=== PATIENT | male | born 1995 | race Caucasian/White ===

== ENCOUNTER 2020-12-25 12:04 | Outpatient (REF) | payer MEDICAID, SELFPAY ==
[2020-12-25 18:30] LABS: Abs Immature Grans 0.02 10^3/uL (0.0-0.06); Absolute Basophil Count 0.02 10^3/uL (0.0-0.2); Absolute Eosinophil Count 0.04 10^3/uL (0.0-0.7); Absolute Lymphocyte Count 1.09 10^3/uL (1.2-3.4); Absolute Monocyte Count 0.52 10^3/uL (0.1-0.8); Basophils % 0.4; Eosinophils % 0.7; HCT 40.3 % (40.0-50.0); HGB 12.8 g/dL (13.5-17.5); Immature Grans % 0.4; Lymphocytes % 20.2; MCH 27.5 pg (27.0-33.0); MCHC 31.8 % (32.0-36.0); MCV 86.5 fL (80-95); Monocytes % 9.6; Neutrophils % 68.7; Nucleated RBC 0 %; RBC 4.66 10^6/uL (4.36-5.78); RDW 13.2 % (11.8-14.1); RDW-SD 41.3 fL; WBC 5.39 10^3/uL (4.4-10.8)
[2020-12-25 18:40] LABS: ALT 43 U/L (16-63); AST 20 U/L (15-37); Albumin 3.8 g/dL (3.4-5.0); Alkaline Phosphatase 76 U/L (46-116); Anion Gap 7.5 mmol/L (3-11); BUN 14 mg/dL (7-18); Bilirubin, Total 0.4 mg/dL (0.2-1.0); CO2 30.5 mmol/L (21.0-32.0); CREATININE 0.8 mg/dL (0.70-1.30); Calcium 8.9 mg/dL (8.5-10.1); Chloride 104 mmol/L (98-107); Glucose 88 mg/dL (74-106); Potassium 3.9 mmol/L (3.5-5.1); Sodium 142 mmol/L (136-145); Total Protein 6.9 g/dL (6.4-8.2)
[2020-12-25 18:50] LABS: D-Dimer 525 ng/mlFEU (<500)
[2020-12-25 19:01] LABS: Diff Comment PLT Morph Reviewed; RBC Morphology Normal
[2020-12-25 19:07] LABS: Platelet Count 8 10^3/uL (130-400)
== END 2020-12-25 12:05 | disposition home or self-care (01) ==
LOC: LBN 12:04
PROVIDERS: Visit Provider Nurse Practitioner Family
DX: M79.604 Pain in right leg (principal); R23.3 Spontaneous ecchymoses
CPT/HCPCS: 80053; 85025; 85379

== ENCOUNTER 2020-12-25 20:19 | Inpatient (IN) | payer MEDICAID, SELFPAY ==
[2020-12-25] VITALS (21 sets, daily range): BP systolic 98–107; BP diastolic 49–64; PULSE 52–74; RESP 11–24; TEMP 36.4–36.8; O2SAT 95–98
--- NOTE | 2020-12-25 20:25 | W.ED.GENAD ---
Discharge Plan Disposition Patient Disposition: [facility] INPATIENT Condition: Poor Discharge Details Chief Complaint: GenMedical Clinical Impression: Thrombocytopenia Admit Date/Time: 12/25/20 21:32 Admit Provider: Thomas Mccarthy Attending Provider: Thomas Mccarthy Primary Care Provider: Unknown,Unknown ED Provider: Roseline Samaniego Medical Decision Making Patient is a pleasant 25 year old male presenting today with c/c of thrombocytopenia and ecchymosis. PMH signifcant for ITP. States he has not had relapse in over a year. Has been followed by heme onc at [facility]. Was last seen by them in March 2019. Reports that he noted an abscess to his central chest one week ago. This spontaneous drained and has been improving. At the same time he noted enlarged lymphnode in the right axilla. Reports that since initially noting these things, he has been feeling well. Denies SOB, CP, rash. No BRBPR, melana, hematuria, hematemesis, bleeding from his gums. States he had a HERNANDEZ over a week ago but none since then, no HERNANDEZ currently. States that yesterday evening he noted unexplained ecchymosis and discomfort to RLE. Feels like when he has had ITP relapse in the past. Patient seen at urgent care this morning. Labs ordered, platelet count 8. Patient advised to come here for evaluation and treatment. He reports he has been in [facility] single digits historically. On exam, patient appears nontoxic. No petechial rashes noted. Lungs are clear. Abdomen benign. He does have a focal area of ecchymosis to the anterior aspect of the right lower extremity. Calf is soft nontoxic. 2+. Plan to repeat CBC, obtain coag. Consult requested at [facility] heme/onc. Consulted with Dr. Sandra. She recommended 40mg Dexamethasone. REcommended against platelet transfusion. Dexamethasone for 4 days. If not reponding in 1-2 days recommended IVIG 1g/kg/QD x 2 days. During that still continue the Dexamethasone. DIC panel and coags. Peripheral smear for schitozyctes Tic and Lyme panel, hepatitis, HIV. If vaccine related it would happen within 28 days COVID vaccine was several months ago. Discussed recommendations with the patient. He has had to be admitted for this historically. Is in agreement with this plan. Consulted with Dr. Mccarthy who agrees to admission for thrombocytopenia and likely ITP recurrence.. HPI General Mode of arrival: ambulatory. Date/Time Provider Initiated Documentation: 12/25/20 20:19. Limitations to Documentation: no limitations. Information obtained by: patient and RN notes reviewed. History of Present Illness 25 year old M presents to the emergency department with the chief complaint of low platelets, unusual bruising, described as moderate and similar to prior episodes, with intensity rated at 5. Quality is described as aching, and is localized to the right and lower extremity. Patient reports no radiation. Patient started experiencing this day(s) (noted discomfort and bruising to RLE yesterday) and it has been constant. No relieving factors improve symptom(s), No exacerbating factors reported . Patient notes no other symptoms.; denies chest pain, cough, fever/chills, headaches, loss of appetite, nausea/vomiting, shortness of breath and weakness. Patient did receive the following treatments prior to arrival, none Related Data Home Medications Medication Instructions Recorded Confirmed Unknown [No Known Home Meds] 12/25/20 12/25/20 Allergies Allergy/AdvReac Type Severity Reaction Status Date / Time Sulfa (Sulfonamide Allergy Mild Rash Verified 12/25/20 20:29 Antibiotics) Review of Systems Constitutional Constitutional: Reports as per HPI, Denies chills, Denies fever(s) and Denies headache(s) ENT Ears, Nose, Mouth, and Throat: Denies dizziness and Denies headache(s) Cardiovascular Cardiovascular: Reports as per HPI, Denies chest pain, Denies dyspnea and Denies dyspnea on exertion Respiratory Respiratory: Reports as per HPI, Denies chest congestion, Denies cough, Denies pain on inspiration, Denies pain with cough, Denies dyspnea and Denies dyspnea on exertion Gastrointestinal Gastrointestinal: Reports as per HPI, Denies abdominal pain, Denies diarrhea, Denies nausea and Denies vomiting Genitourinary Genitourinary: Denies system reviewed and no additional complaints, except as documented (denies change in urinary habits) and Denies hematuria Musculoskeletal Musculoskeletal: Reports as per HPI and Denies back pain Integumentary/Breasts Skin/Breast: Reports as per HPI and Denies rash Neurologic Neurologic: Reports as per HPI, Denies dizziness and Denies headache(s) [facility] Social History Smoking/Tobacco Use Status: Never Smoking risk assessment performed?: Yes Alcohol Intake: never Drug use: Daily Substance use type: marijuana Do you feel safe at home: Yes Do you feel safe in your relationship?: Yes Exam Const General: cooperative, comfortable, no acute distress, well developed and ill appearing chronically Nutritional Appearance: average body habitus and well nourished Orientation: alert, awake and oriented x3 [facility] Head: normal to inspection Ears: hearing grossly normal bilaterally Mouth: moist mucous membranes Throat: posterior oropharynx normal (no rash ) Chest Chest: no crepitus Chest/axillae images: 1. Area of healing abscess. No surrounding erythema, no continued swelling. Central area appears to have opened. Appears to be healing well. 2. 2cm lymphnode, no pain with palpation. Soft, mobile Resp Effort & Inspection: normal respiratory effort, able to speak in complete sentences and no respiratory distress Auscultation: clear to auscultation bilaterally, no rales, no rhonchi and no wheezes Cardio Rate: regular rate Rhythm: regular rhythm Heart Sounds: S1 normal and S2 normal GI Inspection: normal to inspection, no edema and non-distended Palpation: soft, no hepatosplenomegaly, not firm, no guarding, not rigid and nontender Auscultation: normal bowel sounds Back/Spine/Pelvis Thoracic/Lumbar Spine: thoracic and lumbar spine normal to inspection (no bruising) Skin Full body images: 1. Area of ecchymosis. No signficant swelling. 2+ distal pulses. Calf is soft and nontender. Neuro General: patient alert, patient awake and patient oriented x3 Cognition: normal cognition Speech: speech normal Gait: normal gait Extrem General: normal to inspection, capillary refill normal, no pedal edema, no calf tenderness and normal gait Psych Appearance: grossly normal and well kempt Mental Status: mental status grossly normal Speech and Movement: speech and movement normal
[2020-12-25 21:02] LABS: INR 1.2 (0.9-1.1); PTT Activated 28.3 sec (21.0-27.5); Prothrombin Time 11.6 sec (9.3-11.0)
[2020-12-25 21:07] LABS: Abs Immature Grans 0.01 10^3/uL (0.0-0.06); Absolute Basophil Count 0.01 10^3/uL (0.0-0.2); Absolute Eosinophil Count 0.07 10^3/uL (0.0-0.7); Absolute Lymphocyte Count 1.65 10^3/uL (1.2-3.4); Absolute Monocyte Count 0.68 10^3/uL (0.1-0.8); Absolute Neutrophil Count 3.28 10^3/uL (1.2-6.7); Basophils % 0.2; Eosinophils % 1.2; HCT 38.6 % (40.0-50.0); HGB 12.6 g/dL (13.5-17.5); Immature Grans % 0.2; Lymphocytes % 28.9; MCH 27.9 pg (27.0-33.0); MCHC 32.6 % (32.0-36.0); MCV 85.4 fL (80-95); Monocytes % 11.9; Neutrophils % 57.6; Nucleated RBC 0 %; RBC 4.52 10^6/uL (4.36-5.78); RDW 13.2 % (11.8-14.1); RDW-SD 41.6 fL
--- NOTE | 2020-12-25 21:12 | NUR.NOTE ---
Lab calls with critical platelet level; 11. Provider notified. Nursing Note:
[2020-12-25 21:13] LABS: Platelet Count 11 10^3/uL (130-400)
[2020-12-25] MEDS: Dexamethasone 10 MG/ML VIAL 40 MG IVP (21:29)
[2020-12-25 21:43] LABS: Source Nasal/Nares
[2020-12-26 00:23] LABS: COVID-19 PCR Negative (Negative)
--- NOTE | 2020-12-26 05:36 | HPE_ITS ---
Date of service: 12/25/20 Time of Service: 21:04 Assessment and Plan Assessment and plan (1) Thrombocytopenia: Status: Chronic Assessment and plan: Recurrence. Etiology may have been a skin infection (folliculitis). COVID negative in an immunized person. Heme/Onc recommendations being followed as per HPI. Tick-born pathogens, Hepatitis panel and HIV pending. Monitor platelets. Acetaminophen or hydrocodone prn for pain. History of Present Illness History of Present Illness Chief Complaint: Bruising and low platelet count Narrative: This is a 25 yo male with a PMH of ITP; last episode was over 1 year ago. He presented to the ED with a platelet count of 8 obtained at Urgent Care. He has noted bruising and discomfort of an area of the right lower extremity noted the day prior to admission. He has experienced joint pain and petechiae with past episodes. He does not recall any trauma to that area. He has been [place] [facility] visit in March of [place]. Of note, he had a chest wall lesion, described by him as an abscess, one week ago that has since resolved. He has also noted an enlarged right axillary lymph node. He has not felt unwell; no fever/chills, cough, runny nose, SOA. No bleeding gums, melena, hematochezia, epistaxis, hematuria. He did report a headache over one week prior to presentation that resolved. He did note that his platelet count has been as low as 1 in the past. ED provider contacted [facility] [place]e/Onc electronic industrial controls mechanic provider Dr Sandra. She recommended 40mg IV Dexamethasone for 4 days. If no response in 1-2 days proceed with IVIG 1g/kg QD x 2 days. Cont the dexamethasone along with the IVIG. DIC panel and coags were recommended and ordered. A peripheral smear for schitozyctes, tick- borne pathogen panel, hepatitis panel and HIV were ordered. Dr Sandra mentioned that typically if this were vaccine related it would occur within 28 days of the vaccine. He had a COVID vaccine several months ago. [facility] Social History Smoking/Tobacco Use Status: Never Smoking risk assessment performed?: Yes Alcohol Intake: never Drug use: Daily Substance use type: marijuana Do you feel safe at home: Yes Do you feel safe in your relationship?: Yes Meds Allergies and Home Medications Allergies Allergy/AdvReac Type Severity Reaction Status Date / Time Sulfa (Sulfonamide Allergy Mild Rash Verified 12/25/20 20:29 Antibiotics) Home Medications Medication Instructions Recorded Confirmed Type Unknown [No Known Home Meds] 12/25/20 12/25/20 History Exam Const General: cooperative and no acute distress Nutritional Appearance: overweight Orientation: alert and oriented x3 [facility] Head: normocephalic and atraumatic Ears: hearing grossly normal bilaterally Mouth: moist mucous membranes abnormal Eyes General: appearance normal, both eyes and all related structures Sclera: sclerae normal Chest Chest/axillae images: 1. lesion with punctate central opening. No tenderness or drainage. 2. appx 2 cm lymphnode Resp Effort & Inspection: normal respiratory effort Auscultation: clear to auscultation bilaterally Cardio Rate: regular rate Rhythm: regular rhythm Heart Sounds: S1 normal and S2 normal GI Palpation: soft, no splenomegaly and nontender Skin General skin exam: ecchymosis (RLE at lateral calf. Tender.) Neuro General: no focal motor deficits Cognition: normal cognition Speech: speech normal Extrem General: no pedal edema and calf tenderness (RLE at area of ecchymoses but not posterior calf.) Psych Appearance: grossly normal Mental Status: mental status grossly normal Affect: blunted Results Labs Result diagrams: 12/25/20 20:37 Labs: Laboratory Results - last 24 hr 12/25/20 12/25/20 12/25/20 20:37 20:37 21:37 WBC 5.70 RBC 4.52 Hgb 12.6 L Hct 38.6 L MCV 85.4 MCH 27.9 MCHC 32.6 RDW 13.2 Plt Count 11 L* MPV Immature Gran % 0.2 Neutrophils % 57.6 Lymphocytes % 28.9 Monocytes % 11.9 Eosinophils % 1.2 Basophils % 0.2 Nucleated RBC % 0 Absolute Neutrophils 3.28 Absolute Lymphocytes 1.65 Absolute Monocytes 0.68 Absolute Eosinophils 0.07 Absolute Basophils 0.01 PT 11.6 H INR 1.2 H APTT 28.3 H COVID-19 Source Nasal/Nares SARS-CoV-2 (PCR) Negative Last Vital Signs Temp 36.4 C L 12/25/20 22:42 Pulse 68 12/25/20 22:42 Resp 16 12/25/20 22:42 BP 101/64 12/25/20 22:42 Pulse Ox 97 12/25/20 22:42
[2020-12-26 07:09] LABS: Abs Immature Grans 0.02 10^3/uL (0.0-0.06); Absolute Basophil Count 0.01 10^3/uL (0.0-0.2); Absolute Monocyte Count 0.06 10^3/uL (0.1-0.8); Absolute Neutrophil Count 3.62 10^3/uL (1.2-6.7); Basophils % 0.2; HCT 42.8 % (40.0-50.0); HGB 13.5 g/dL (13.5-17.5); Immature Grans % 0.5; Lymphocytes % 11.9; MCH 27.2 pg (27.0-33.0); MCHC 31.5 % (32.0-36.0); MCV 86.1 fL (80-95); Monocytes % 1.4; Nucleated RBC 0 %; RBC 4.97 10^6/uL (4.36-5.78); RDW 13.2 % (11.8-14.1); RDW-SD 41.1 fL; WBC 4.21 10^3/uL (4.4-10.8)
[2020-12-26 07:15] LABS: Magnesium 2.3 mg/dL (1.8-2.4)
[2020-12-26 07:16] LABS: INR 1.1 (0.9-1.1); Prothrombin Time 11.2 sec (9.3-11.0)
[2020-12-26 07:29] LABS: Platelet Count 13 10^3/uL (130-400)
[2020-12-26 07:53] VITALS: BP 121/74; PULSE 63; RESP 17; TEMP 36.1; O2SAT 96
--- NOTE | 2020-12-26 11:59 | INITIAL_ITS ---
- If Service Date Differs Date of service: 12/26/20 Time of Service: 11:59 Care Management Initial Assess REASON FOR HOSPITALIZATION:: Immune Thrombocytopenia Purpura. PAST MEDICAL HISTORY/PAST SURGICAL HISTORY:: No past medical/surgical history of record. PREVIOUS FUNCTIONAL STATUS/SOCIAL/FAMILY SUPPORTS:: Myles lives in [place] with his brother and three roommates. He works at [email or web address] and spends his free time watching television, playing video games, and hanging out with friends. He names his mom and step-dad as his main support. CURRENT FUNCTIONAL STATUS:: Myles is lying in bed watching television when CM comes to meet with him. He is pleasant and easily engages in conversation. He shows me the bruise on his right leg and says he can tell his platelet count is improving by the color of the bruise. ADVANCE DIRECTIVES:: None on file; patient declines form and says his mom and step-dad know what his wishes are. Has patient been provided with info about the portal/API?: Yes Did the patient sign up for the portal?: Yes (Yes through PCP) CODE STATUS:: Full Code INSURANCE COVERAGE / FINANCIAL ISSUES:: Medicaid. CURRENT HOME/COMMUNITY SERVICES/EQUIPMENT:: None. PRIMARY CARE PHYSICIAN:: Patient states he turned in new patient paperwork at [facility] and is waiting for a provider to be assigned to him. POTENTIAL DISCHARGE NEEDS:: Follow up appointments with PCP and [facility] retail presentation specialist. PATIENT/FAMILY EDUCATION NEEDS:: Review discharge instructions including medications, limitations, and follow up plan of care, and discuss Ask Me Three and self management. ANTICIPATED BARRIERS TO DISCHARGE:: No anticipated barriers at this time. TRANSPORTATION:: Via private vehicle with family. PLAN:: Anticipate Myles will be discharged home with no new services when medically cleared by provider. He will follow up with his PCP, [facility] hematology and discharge plan of care as directed. He will be driven home by his brother via private vehicle when ready. CM will continue to follow.
[2020-12-26] MEDS: Dexamethasone 10 MG/ML VIAL 40 MG IVP (17:15)
--- NOTE | 2020-12-26 19:59 | W.PM.PROGNOT ---
Date of Service Date of service: 12/26/20 Time of Service: 20:00 Assessment and Plan Assessment and plan (1) Acute ITP: Status: Acute Assessment and plan: Continue dexamethasone. Monitor plts. May require IVIG - the patient states that he has had it in the past. (2) Folliculitis: Status: Acute Assessment and plan: Start doxycycline PO (3) DVT prophylaxis: Status: Acute Assessment and plan: Contraindicated in setting of acute severe thrombocytopenia (4) Discharge planning issues: Status: Acute Assessment and plan: Full code Continues to require hospitalization Subjective Subjective Interval history since last seen: Feels well. States that there are no new ecchymoses and no bleeding. Denies dizziness, chest pain, shortness of breath, nausea. Recalls that just a week ago he had a large lymph node in his right axilla, but he can't feel it now. Exam Narrative Exam Narrative: General: Pleasant male who is watching TV in bed, A&Ox3, no distress HEENT: EOMI, MMM Heart: RRR, no m/r/g Lungs: CTAB Abdomen: soft, nontender, nondistended Extremities: no lymphadenopathy in R axilla that I can palpate, RLE ecchymosis pale green, no other obvious ecchymoese, no edema Objective Last Vital Signs Temp 36.1 C L 12/26/20 07:53 Pulse 63 12/26/20 07:53 Resp 17 12/26/20 07:53 BP 121/74 12/26/20 07:53 Pulse Ox 96 12/26/20 07:53 Laboratory Results - last 24 hr 12/25/20 12/25/20 12/25/20 20:37 20:37 21:37 WBC 5.70 RBC 4.52 Hgb 12.6 L Hct 38.6 L MCV 85.4 MCH 27.9 MCHC 32.6 RDW 13.2 Plt Count 11 L* MPV Immature Gran % 0.2 Neutrophils % 57.6 Lymphocytes % 28.9 Monocytes % 11.9 Eosinophils % 1.2 Basophils % 0.2 Nucleated RBC % 0 Absolute Neutrophils 3.28 Absolute Lymphocytes 1.65 Absolute Monocytes 0.68 Absolute Eosinophils 0.07 Absolute Basophils 0.01 PT 11.6 H INR 1.2 H APTT 28.3 H Magnesium COVID-19 Source Nasal/Nares SARS-CoV-2 (PCR) Negative 12/26/20 12/26/20 12/26/20 06:44 06:44 06:44 WBC 4.21 L RBC 4.97 Hgb 13.5 Hct 42.8 MCV 86.1 MCH 27.2 MCHC 31.5 L RDW 13.2 Plt Count 13 L* MPV Immature Gran % 0.5 Neutrophils % 86.0 Lymphocytes % 11.9 Monocytes % 1.4 Eosinophils % 0.0 Basophils % 0.2 Nucleated RBC % 0 Absolute Neutrophils 3.62 Absolute Lymphocytes 0.50 L Absolute Monocytes 0.06 L Absolute Eosinophils 0.00 Absolute Basophils 0.01 PT 11.2 H INR 1.1 APTT Magnesium 2.3 COVID-19 Source SARS-CoV-2 (PCR)
[2020-12-26 20:26] VITALS: BP 100/55; PULSE 55; RESP 16; TEMP 36.6; O2SAT 96
[2020-12-26] MEDS: Doxycycline Hyclate 100 MG CAP PO (21:15)
[2020-12-26 23:20] VITALS: BP 102/63; PULSE 66; RESP 17; TEMP 35.3; O2SAT 98
[2020-12-27 07:30] VITALS: BP 100/54; PULSE 66; RESP 16; TEMP 36.7; O2SAT 98
[2020-12-27 07:36] LABS: Abs Immature Grans 0.11 10^3/uL (0.0-0.06); Absolute Basophil Count 0.02 10^3/uL (0.0-0.2); Absolute Lymphocyte Count 1.03 10^3/uL (1.2-3.4); Absolute Monocyte Count 0.34 10^3/uL (0.1-0.8); Absolute Neutrophil Count 15.71 10^3/uL (1.2-6.7); Basophils % 0.1; HCT 42.1 % (40.0-50.0); HGB 13.6 g/dL (13.5-17.5); Immature Grans % 0.6; MCH 27.6 pg (27.0-33.0); MCHC 32.3 % (32.0-36.0); MCV 85.4 fL (80-95); MPV 15.5 fL (8.0-11.0); Neutrophils % 91.3; Nucleated RBC 0 %; RBC 4.93 10^6/uL (4.36-5.78); RDW 13.4 % (11.8-14.1); RDW-SD 41.6 fL; WBC 17.21 10^3/uL (4.4-10.8)
[2020-12-27] MEDS: Doxycycline Hyclate 100 MG CAP PO ×2 (07:54→20:21)
[2020-12-27] MEDS: Pantoprazole 40 MG TABCR PO (07:54)
[2020-12-27 07:56] LABS: Anion Gap 8.6 mmol/L (3-11); BUN 17 mg/dL (7-18); CO2 26.4 mmol/L (21.0-32.0); CREATININE 0.7 mg/dL (0.70-1.30); Calcium 9.5 mg/dL (8.5-10.1); Chloride 108 mmol/L (98-107); Glucose 138 mg/dL (74-106); Magnesium 2.4 mg/dL (1.8-2.4); Potassium 4.2 mmol/L (3.5-5.1); Sodium 143 mmol/L (136-145)
[2020-12-27 08:37] LABS: Vitamin B12 834 pg/mL (193-986)
[2020-12-27 08:42] LABS: Platelet Count 56 10^3/uL (130-400)
[2020-12-27 10:42] LABS: Lyme Ab w Rflx to Lyme Confirm Negative (Negative)
[2020-12-27 11:19] LABS: HIV-1/2 Ag & Ab Screen Negative (Negative)
[2020-12-27 11:32] LABS: Hepatitis A Antibody IgM Negative (Negative); Hepatitis B Core Antibody Negative (Negative); Hepatitis B surface Ag Negative (Negative); Hepatitis C Ab w Rflx HCV PCR Negative (Negative)
[2020-12-27 15:15] VITALS: BP 104/61; PULSE 63; RESP 16; TEMP 36.5; O2SAT 97
--- NOTE | 2020-12-27 16:30 | PDOC.CMPRO ---
- If Service Date Differs Date of service: 12/27/20 Time of Service: 16:30 Care Management Progress Note S/O: Myles is lying in bed watching television when CM comes to meet with him. He states he is doing well and is looking forward to returning home. He shares his platelet count today was 56 and continues to trend upward. Per a conversation with Dr. Johnson, Myles requires three doses of dexamethasone, so he will remain inpatient at [facility] through Wednesday. A: Myles is a 25 year old male admitted to [facility] on 12/25/2020 for immune thrombocytopenia purpura. P: Myles will be discharged home with no new services when medically cleared by provider. He will follow up with his PCP, [facility] hematology/oncology provider, and discharge plan of care as directed. His brother will drive him home via private vehicle when ready. CM will continue to follow.
[2020-12-27] MEDS: Dexamethasone 10 MG/ML VIAL 40 MG IVP (17:58)
--- NOTE | 2020-12-27 18:23 | W.PM.PROGNOT ---
Date of Service Date of service: 12/27/20 Time of Service: 16:30 Assessment and Plan Assessment and plan (1) Acute ITP: Status: Acute Assessment and plan: Continue dexamethasone - 4th dose will be tomorrow evening, after which he can hopefully be d/c'ed. Monitor plts. May require IVIG - the patient states that he has had it in the past. (2) Folliculitis: Status: Acute Assessment and plan: Continue PO doxycycline (3) DVT prophylaxis: Status: Acute Assessment and plan: Contraindicated in setting of acute severe thrombocytopenia (4) Discharge planning issues: Status: Acute Assessment and plan: Full code Continues to require hospitalization Subjective Subjective Interval history since last seen: Mr Lee states he feels well. No new bleeding or ecchymoses. Denies dizziness, chest pain, shortness of breath, nausea. Case was discussed with [facility] hematology - recommended a total of 4 doses of high dose dexamethasone. If platelets drop tomorrow, recommended IVIG 1 mg/kg. He will need bloodwork in 1 week. Exam Narrative Exam Narrative: General: Pleasant male who is watching The office on TV in bed, A&Ox3, no distress HEENT: EOMI, MMM Heart: RRR, no m/r/g Lungs: CTAB Abdomen: soft, nontender, nondistended Extremities: no lymphadenopathy in R axilla that I can palpate, RLE ecchymosis pale green, unchanged, no other obvious ecchymoses, no edema Objective Last Vital Signs Temp 36.5 C 12/27/20 15:15 Pulse 63 12/27/20 15:15 Resp 16 12/27/20 15:15 BP 104/61 12/27/20 15:15 Pulse Ox 97 12/27/20 15:15 Laboratory Results - last 24 hr 12/25/20 12/25/20 12/25/20 21:34 21:34 21:34 WBC RBC Hgb Hct MCV MCH MCHC RDW Plt Count MPV Immature Gran % Neutrophils % Lymphocytes % Monocytes % Eosinophils % Basophils % Nucleated RBC % Absolute Neutrophils Absolute Lymphocytes Absolute Monocytes Absolute Eosinophils Absolute Basophils Sodium Potassium Chloride Carbon Dioxide Anion Gap BUN Creatinine Estimated GFR/1.73 m2 Glucose Calcium Magnesium Vitamin B12 Lyme Disease Antibody Negative Hepatitis A IgM Ab Negative Hep Bs Antigen Negative Hep B Core Total Ab Negative Hepatitis C Antibody Negative HIV 1&2 Ag/Ab, 4th Gen Negative 12/27/20 12/27/20 12/27/20 07:00 07:00 07:00 WBC 17.21 H D RBC 4.93 Hgb 13.6 Hct 42.1 MCV 85.4 MCH 27.6 MCHC 32.3 RDW 13.4 Plt Count 56 L D MPV 15.5 H Immature Gran % 0.6 Neutrophils % 91.3 Lymphocytes % 6.0 Monocytes % 2.0 Eosinophils % 0.0 Basophils % 0.1 Nucleated RBC % 0 Absolute Neutrophils 15.71 H Absolute Lymphocytes 1.03 L Absolute Monocytes 0.34 Absolute Eosinophils 0.00 Absolute Basophils 0.02 Sodium 143 Potassium 4.2 Chloride 108 H Carbon Dioxide 26.4 Anion Gap 8.6 BUN 17 Creatinine 0.7 Estimated GFR/1.73 m2 >= 60.00 Glucose 138 H Calcium 9.5 Magnesium 2.4 Vitamin B12 834 Lyme Disease Antibody Hepatitis A IgM Ab Hep Bs Antigen Hep B Core Total Ab Hepatitis C Antibody HIV 1&2 Ag/Ab, 4th Gen
[2020-12-27 23:49] VITALS: BP 105/65; PULSE 65; RESP 18; TEMP 36.5; O2SAT 99
[2020-12-28] MEDS: Pantoprazole 40 MG TABCR PO (06:36)
[2020-12-28 07:15] VITALS: BP 119/65; PULSE 55; RESP 16; TEMP 36.1; O2SAT 96
[2020-12-28] MEDS: Doxycycline Hyclate 100 MG CAP PO (09:07)
[2020-12-28 10:03] LABS: Abs Immature Grans 0.26 10^3/uL (0.0-0.06); Absolute Basophil Count 0.03 10^3/uL (0.0-0.2); Absolute Lymphocyte Count 1.02 10^3/uL (1.2-3.4); Absolute Monocyte Count 0.31 10^3/uL (0.1-0.8); Basophils % 0.2; HCT 42.9 % (40.0-50.0); HGB 13.7 g/dL (13.5-17.5); Immature Grans % 1.6; Lymphocytes % 6.3; MCH 27.6 pg (27.0-33.0); MCHC 31.9 % (32.0-36.0); MCV 86.3 fL (80-95); Monocytes % 1.9; Nucleated RBC 0 %; Platelet Count 115 10^3/uL (130-400); RBC 4.97 10^6/uL (4.36-5.78); RDW 13.8 % (11.8-14.1); RDW-SD 43.6 fL; WBC 16.22 10^3/uL (4.4-10.8)
--- NOTE | 2020-12-28 16:14 | PGE_ITS ---
Date of Service Date of service: 12/28/20 Time of Service: 16:14 Assessment and Plan Assessment and plan (1) Acute ITP: Status: Acute Assessment and plan: Complete his fourth dose of dexamethasone 40 mg IV push now and then discharge him this evening with follow-up CBC next week. Patient should call Dr. Ricky Francis's office at [facility] for follow-up in the next couple weeks. I told the patient could return to work at [employer] next week as long as his CBC remains normal he should just take appropriate precautions prevent any injury such as wearing eye protection and gloves but he should not do any work where he could have a head injury or fall. (2) Folliculitis: Status: Acute Assessment and plan: Continue PO doxycycline patient's had 3 days of doxycycline I will give him 3 more days and that should be sufficient. An Rx was sent to [facility] in [place] (3) DVT prophylaxis: Status: Acute Assessment and plan: Contraindicated in setting of acute severe thrombocytopenia (4) Discharge planning issues: Status: Acute Assessment and plan: Full code Discharge home today Subjective Subjective Interval history since last seen: Patient feels fine he wants to leave the hospital. He is scheduled to get his last dose of Decadron 40 mg this evening at 6 PM I told him we can give this to him early and he could be discharged home. Since his platelet counts are now up to 115,000 I see no need to keep him here another day just to repeat his platelet count tomorrow. I did recommend he follow-up with his hotel director at [facility] which is Dr. Ricky Francis. I told the patient that he should get a repeat CBC next week and call Dr. Francis's office on Wednesday for follow-up. Patient has no fever no chills no nausea or vomiting. His axillary adenopathy is resolved and the small folliculitis on his chest also has resolved. Exam Narrative Exam Narrative: Redheaded male alert and oriented person place time circumstance Chest wall has a small area of folliculitis that appears to be healed over the sternum. No palpable axillary adenopathy Lungs are clear to auscultation Heart regular rate and rhythm Abdomen soft nontender nondistended normal bowel sounds with no palpable organomegaly Objective Last Vital Signs Temp 36.1 C L 12/28/20 07:15 Pulse 55 L 12/28/20 07:15 Resp 16 12/28/20 07:15 BP 119/65 12/28/20 07:15 Pulse Ox 96 12/28/20 07:15 Laboratory Results - last 24 hr 12/25/20 12/25/20 12/25/20 21:34 21:34 21:34 WBC RBC Hgb Hct MCV MCH MCHC RDW Plt Count MPV Immature Gran % Neutrophils % Lymphocytes % Monocytes % Eosinophils % Basophils % Nucleated RBC % Absolute Neutrophils Absolute Lymphocytes Absolute Monocytes Absolute Eosinophils Absolute Basophils Lyme Disease Antibody Negative Hepatitis A IgM Ab Negative Hep Bs Antigen Negative Hep B Core Total Ab Negative Hepatitis C Antibody Negative HIV 1&2 Ag/Ab, 4th Gen Negative 12/28/20 09:29 WBC 16.22 H RBC 4.97 Hgb 13.7 Hct 42.9 MCV 86.3 MCH 27.6 MCHC 31.9 L RDW 13.8 Plt Count 115 L MPV Immature Gran % 1.6 Neutrophils % 90.0 Lymphocytes % 6.3 Monocytes % 1.9 Eosinophils % 0.0 Basophils % 0.2 Nucleated RBC % 0 Absolute Neutrophils 14.60 H Absolute Lymphocytes 1.02 L Absolute Monocytes 0.31 Absolute Eosinophils 0.00 Absolute Basophils 0.03 Lyme Disease Antibody Hepatitis A IgM Ab Hep Bs Antigen Hep B Core Total Ab Hepatitis C Antibody HIV 1&2 Ag/Ab, 4th Gen
[2020-12-28 16:16] VITALS: BP 108/65; PULSE 52; RESP 16; TEMP 37.2; O2SAT 98
--- NOTE | 2020-12-28 16:32 | W.PM.DS.N ---
Date of service: 12/28/20 Time of Service: 16:32 DS: Diagnosis Discharge Diagnosis (1) Acute ITP: Status: Resolved Asessment and Plan: Patient presented to the ER 12/25 w/ c/o of new ecchymosis in RLE and recent folliculitis over his anterior chest along w/ right axillary adenopathy. No associated melena or hematochezia or bleeding gums nor hematuria. 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 He reportedly has not had a relapse in over one year. The ER discussed his case w/ heme/onc at [facility] [place] (Dr. Sandra) who recommended admission for daily dexamethasone 40 mg IVP x 4 days and if not responding then give IVIG 1 gm/kg/daily x 2 days and to obtain peripheral smear for schistocytes, Tick and Lyme panel, hepatitis screen and HIV. Of note patient has been fully vaccinated for COVID but this was done several months ago and his ITP was not felt to be related to his vaccine. Patient was treated w/ decadron 40 mg iv daily x 4 days. after the first dose his platelet count ajit from 8000 to 13,000 and after the second dose it ajit to 56,,000 and at the time of discharge (after 3 doses and prior to the 4th dose) it was 115,000. He did receive his 4th dose of decadron 40 mg prior to discharge. he will get repeat CBC next week w/ follow up w/ his claim clinician in the next 1 to 2 weeks. (2) Folliculitis: Status: Resolved Asessment and Plan: patient had a mild folliculitis involving his anterior chest wall over the sternum which was already improving at the time of admission. he was treated w/ doxycycline 100 mg po bid and will receive 3 more days of the doxycycline for total of 6 days. (3) DVT prophylaxis: Status: Resolved Asessment and Plan: patient was placed on SCD as he was not a candidate for enoxaparin or heparin in light of his ITP (4) Discharge planning issues: Status: Resolved Asessment and Plan: patient was discharged home w/ scheduled follow up visit w/ Dr. Herrera Castillo next week and patient to call his claim clinician's office (Dr. Ricky Francis at [facility] [place]) tomorrow for follow up in 2 weeks Discharge Plan Disposition Patient Disposition: HOME Condition: Improving Discharge Details Reason For Visit: Immune Thrombocytopenia Purpura Admit Date/Time: 12/25/20 21:32 Admit Provider: Thomas Mccarthy Attending Provider: Thomas Mccarthy Primary Care Provider: Unknown,Unknown Home Meds and New Rx's Prescriptions: New doxycycline hyclate 150 mg tablet 150 mg PO BID Qty: 6 RF: 0 Discharge Instructions Instructions: Immune Thrombocytopenia (DC), Folliculitis (DC) Stand Alone Forms: Nursing Discharge Form Referrals: Herrera Castillo MD [ [facility] STAFF PHYSICIAN] - 12/31/20 11:20 am () Ricky Francis [ [facility] STAFF PHYSICIAN] - (Call office Wednesday to make follow up appointment for 2 weeks.) Activity:: Activity as Tolerated Equipment/Supplies:: No Equipment Needed Diet:: Normal Diet Discharge Orders Discharge Orders: Discharge Order (Routine); Ordered 12/28/20 Ordered By: Alexandro Goncalves Other Ambulatory Orders: Complete Blood Count w/Diff (Routine) Timeframe: 1 Week Facility: [facility] - Location: Laboratory Outpatient Ordered By: Alexandro Goncalves Discharge Data Discharge Date/Time-TO BE ENTERED AT DEPARTURE: 12/28/20 17:40 DS: Summary Time Spent with Patient providing and/or coordinating discharge services: Less than 30 minutes Specific discharge activities: Rx, follow up labs; explaination of findings Status at Discharge Functional status at discharge: independent ambulation Overall status at discharge: patient is back to baseline Mental Status: mental status grossly normal Speech and Movement: speech and movement normal Mood: congruent mood Affect: normal affect Exam Narrative Exam Narrative: Redheaded male alert and oriented person place time circumstance Chest wall has a small area of folliculitis that appears to be healed over the sternum. No palpable axillary adenopathy Lungs are clear to auscultation Heart regular rate and rhythm Abdomen soft nontender nondistended normal bowel sounds with no palpable organomegaly Psych Mental Status: mental status grossly normal Speech and Movement: speech and movement normal Mood: congruent mood Affect: normal affect DS: Data Vitals/I&O Vitals and I&O: Vital Signs Temperature 37.2 C 12/28/20 16:16 Temperature Source Tympanic 12/28/20 16:16 Pulse 52 L 12/28/20 16:16 Pulse Rhythm Regular 12/28/20 07:15 Pulse 58 L 12/25/20 22:10 Respiratory Rate 16 12/28/20 16:16 Respiratory Effort Non-Labored 12/28/20 07:15 Respiratory Depth Normal 12/28/20 07:15 Respiratory Pattern Normal 12/28/20 07:15 Blood Pressure 108/65 12/28/20 16:16 Blood Pressure Mean 65 12/25/20 22:01 Blood Pressure Position Sitting 12/25/20 20:22 Pulse Oximetry 98 12/28/20 16:16 Oxygen Delivery Method Room Air 12/28/20 16:16 Oxygen Flow Rate 0 12/28/20 16:16 Pain Level 0 12/28/20 07:15 Intake & Output 12/27/20 12/28/20 12/28/20 23:59 11:59 23:59 Intake Total 420 / 420 250 / 250 Balance 420 / 420 250 / 250 Intake: Oral 420 / 420 250 / 250 Other: Urine Appearance Clear Clear Comment pT voiding independent in toilet Voiding Methods Toilet Data Completed and Pending Labs on day of discharge: Labs from last 24 hours 12/28/20 12/25/20 12/25/20 09:29 21:34 21:34 WBC 16.22 H RBC 4.97 Hgb 13.7 Hct 42.9 MCV 86.3 MCH 27.6 MCHC 31.9 L RDW 13.8 Plt Count 115 L MPV Immature Gran % 1.6 Neutrophils % 90.0 Lymphocytes % 6.3 Monocytes % 1.9 Eosinophils % 0.0 Basophils % 0.2 Nucleated RBC % 0 Absolute Neutrophils 14.60 H Absolute Lymphocytes 1.02 L Absolute Monocytes 0.31 Absolute Eosinophils 0.00 Absolute Basophils 0.03 Lyme Disease Antibody Negative Hepatitis A IgM Ab Negative Hep Bs Antigen Negative Hep B Core Total Ab Negative Hepatitis C Antibody Negative HIV 1&2 Ag/Ab, 4th Gen 12/25/20 21:34 WBC RBC Hgb Hct MCV MCH MCHC RDW Plt Count MPV Immature Gran % Neutrophils % Lymphocytes % Monocytes % Eosinophils % Basophils % Nucleated RBC % Absolute Neutrophils Absolute Lymphocytes Absolute Monocytes Absolute Eosinophils Absolute Basophils Lyme Disease Antibody Hepatitis A IgM Ab Hep Bs Antigen Hep B Core Total Ab Hepatitis C Antibody HIV 1&2 Ag/Ab, 4th Gen Negative PFSH Social History Smoking/Tobacco Use Status: Never Smoking risk assessment performed?: Yes Alcohol Intake: never Drug use: Daily Substance use type: marijuana Do you feel safe at home: Yes Do you feel safe in your relationship?: Yes
[2020-12-28] MEDS: Normal Saline Flush 10 ML SYR (16:40)
[2020-12-28] MEDS: Dexamethasone 10 MG/ML VIAL 40 MG IVP (16:40)
[2020-12-29 13:22] LABS: Anaplasma phagocytophilum Negative (Negative); B. miyamotoi PCR Negative (Negative); Babesia divergens/MO-1 Negative (Negative); Babesia duncani Negative (Negative); Babesia microti Negative (Negative); Ehrlichia chaffeensis Negative (Negative); Ehrlichia ewingii/canis Negative (Negative); Ehrlichia muris eauclairensis Negative (Negative)
== END 2020-12-28 17:40 | disposition home or self-care (01) | DRG 813 ==
LOC: ER 22:30 → MS 22:32
PROVIDERS: Internal Medicine; Admitting Provider Family Medicine; Emergency Provider Physician Assistant; Visit Provider Family Medicine
DX: D69.3 Immune thrombocytopenic purpura (principal); Z20.822 Contact with and (suspected) exposure to COVID-19; L73.8 Other specified follicular disorders
CPT/HCPCS: 36415; 80048; 86704; 86709; 86803; 87340; 87389; 87635; 87798; 96374; 99285; 82607; 83735; 85025; 85610; 85730; 86618; 99223; 99231; 99238; 99284; J1100

== ENCOUNTER 2020-12-31 11:29 | Outpatient (CLI) | payer MEDICAID, SELFPAY ==
[2020-12-31 12:33] LABS: Abs Immature Grans 0.38 10^3/uL (0.0-0.06); Absolute Basophil Count 0.08 10^3/uL (0.0-0.2); Absolute Eosinophil Count 0.29 10^3/uL (0.0-0.7); Absolute Lymphocyte Count 4.41 10^3/uL (1.2-3.4); Absolute Monocyte Count 1.44 10^3/uL (0.1-0.8); Absolute Neutrophil Count 12.57 10^3/uL (1.2-6.7); Basophils % 0.4; Eosinophils % 1.5; HCT 42.2 % (40.0-50.0); HGB 13.5 g/dL (13.5-17.5); MCH 27.7 pg (27.0-33.0); MCV 86.7 fL (80-95); Monocytes % 7.5; Neutrophils % 65.6; Nucleated RBC 0 %; Platelet Count 275 10^3/uL (130-400); RBC 4.87 10^6/uL (4.36-5.78); RDW 14.2 % (11.8-14.1); RDW-SD 44.4 fL; WBC 19.16 10^3/uL (4.4-10.8)
== END 2020-12-31 11:30 | disposition home or self-care (01) ==
LOC: LOS 11:29
PROVIDERS: Family Medicine; Visit Provider Internal Medicine
DX: D69.6 Thrombocytopenia, unspecified (principal)
CPT/HCPCS: 36415; 85025

== ENCOUNTER 2021-02-17 15:54 | Outpatient (REF) | payer MEDICAID, SELFPAY ==
[2021-02-19 11:23] LABS: COVID-19 RT-PCR UVMMC Result Negative (Negative)
== END 2021-02-17 15:55 | disposition home or self-care (01) ==
LOC: LBN 15:54
PROVIDERS: PCP Family Medicine; Visit Provider Family Medicine
DX: Z20.822 Contact with and (suspected) exposure to COVID-19 (principal)
CPT/HCPCS: U0003

== ENCOUNTER 2021-03-28 08:20 | Emergency (ER) | payer MEDICAID, SELFPAY ==
[2021-03-28 08:29] VITALS: BP 109/69; PULSE 84; RESP 16; TEMP 36.8; O2SAT 98
--- NOTE | 2021-03-28 08:36 | W.ED.GENAD ---
Discharge Plan Disposition Patient Disposition: HOME Condition: Stable Discharge Details Clinical Impression: Lumbar strain Primary Care Provider: Herrera Castillo ED Provider: Gemma Major Home Meds and New Rx's Prescriptions: New prednisone 20 mg tablet See Rx Instructions .ROUTE .COMPLEX Qty: 18 RF: 0 Continued ProAir RespiClick 90 mcg/actuation aerosol powdr breath activated 2 inh inhalation Q6H PRN (Reason: shortness of breath or wheezing) Qty: 1 RF: 2 acetaminophen 500 mg tablet 1,000 mg PO Q6H PRNRF: 0 No Action methocarbamol 750 mg tablet 750 mg PO Q6H PRN (Reason: muscle spasm) Qty: 30 RF: 1 lidocaine [Lidoderm] 1 PATCH patch 1 patch Topical Q24H Qty: 4 RF: 0 Discharge Instructions Instructions: Low Back Strain (ED) Additional Instructions: It is suspected that your symptoms are most likely due to a muscle strain in your back at this time. Prescriptions for steroids and muscle relaxers have been sent electronically to your pharmacy. You can also continue to take Tylenol as needed and directed for pain. You can sparingly take ibuprofen as needed and directed for pain. Take the oxycodone for pain not relieved with Tylenol or ibuprofen. Follow-up with your primary care doctor within the next week for reevaluation and for recheck of your platelets which were noted to be within a normal range today. Return immediately to the emergency department if you develop any worsening or concerning symptoms such as worsening pain, loss of bowel or bladder function, leg weakness or numbness or any other concerns. Stand Alone Forms: Work Release Discharge Data Discharge Date/Time-TO BE ENTERED AT DEPARTURE: 03/28/21 11:39 Discharge Physician: Gemma Major Medical Decision Making 25-year-old male with a history of ITP and autoimmune hemolytic anemia presents for lower back pain for the past 2 days. Denies any new injury but states he has been standing for long hours at a new job for the past 4 days. No cauda equina symptoms. Vitals within normal limits. Patient appears uncomfortable but nontoxic. He has reproducible bilateral paraspinal and midline lumbar tenderness but without evidence of trauma or cellulitis or rash. He is otherwise neurovascularly intact. Suspect most likely musculoskeletal origin. He states his presentations of ITP have been associated with petechia or purpura and leg pain which he currently does not have so this appears unlikely. He has no signs of ecchymoses or rash on exam. He missed a recent check of his platelets and will obtain a CBC. He is hesitant to take NSAIDs until result of his platelets. We will give a dose of oxycodone and Valium and reassess CBC reviewed and notes normal white blood cell count, normal hemoglobin and normal platelets. Platelets have decreased since last check in December when they were 275 and today they are 160. Patient reassessed and he feels no better. He is able to ambulate and pain appears musculoskeletal. He feels the back pain is radiating around the sides of his torso. Will give a shot of Toradol, dose of prednisone and another dose of oxycodone and reassess. Patient admits to some improvement and feels that he is moving better. Discussed with pt the option of obtaining imaging but he does not feel he needs this at this time and he feels comfortable going home. Prescriptions for steroids and muscle relaxants sent electronically to his pharmacy. He was also given a bottle of oxycodone to go for breakthrough pain. Advised that he can take ibuprofen sparingly. Advised to follow-up with his PCP for reevaluation and for recheck of his platelets. Usual and customary return precautions given prior to discharge. Medical Records Medical records reviewed: Yes I reviewed the patient's medical records. Lab Data Lab results reviewed: Yes I reviewed the patient's lab results. Labs: Laboratory Tests Range/Units 03/28/21 09:06 WBC (4.4-10.8) 10^3/uL 7.62 RBC (4.36-5.78) 10^6/uL 5.18 Hgb (13.5-17.5) g/dL 14.3 Hct (40.0-50.0) % 44.8 MCV (80-95) fL 86.5 MCH (27.0-33.0) pg 27.6 MCHC (32.0-36.0) % 31.9 L RDW (11.8-14.1) % 14.5 H Plt Count (130-400) 10^3/uL 160 MPV (8.0-11.0) fL Immature Gran % 0.3 Neutrophils % 69.0 Lymphocytes % 15.7 Monocytes % 12.2 Eosinophils % 2.5 Basophils % 0.3 Nucleated RBC % % 0 Absolute Neutrophils (1.2-6.7) 10^3/uL 5.26 Absolute Lymphocytes (1.2-3.4) 10^3/uL 1.20 Absolute Monocytes (0.1-0.8) 10^3/uL 0.93 H Absolute Eosinophils (0.0-0.7) 10^3/uL 0.19 Absolute Basophils (0.0-0.2) 10^3/uL 0.02 RBC Morphology Normal HPI General Mode of arrival: ambulatory. Date/Time Provider Initiated Documentation: 03/28/21 08:36. Limitations to Documentation: no limitations. Information obtained by: patient. HPI Narrative: Patient is a 25-year-old male with a history of ITP and autoimmune hemolytic anemia admitted here in December for spontaneous ecchymosis and leg pain with improvement of his thrombocytopenia with a core steroids presents for back pain for the past 2 days. Patient states he started a new job in an [employer] 4 days ago and has been standing for multiple hours which is new for him. He states 2 days ago he woke up with lower back pain across his whole back that is worse with movement, standing, walking and bending. He denies any bowel or bladder incontinence, abdominal pain, vomiting, saddle anesthesia, leg pain, weakness or numbness. He has been taking Tylenol for pain without significant relief. He states he prefers not ibuprofen due to risk of bleeding with his history of ITP. He states he was supposed to have a check of his platelets in February 2021 but was unable to go and would like his platelets checked today. Related Data Home Medications Medication Instructions Recorded Confirmed acetaminophen 500 mg tablet 1,000 mg PO Q6H PRN tab 01/13/21 04/01/21 albuterol sulfate 90 mcg/actuation 2 inh INHALATION Q6H PRN #1 ea 02/17/21 04/01/21 breath activated powder inhaler prednisone See Rx Instructions .ROUTE 03/28/21 04/01/21 .COMPLEX #18 tab lidocaine [Lidoderm] 1 patch TOPICAL Q24H #4 ea 03/31/21 04/01/21 methocarbamol 750 mg tablet 750 mg PO Q6H PRN #30 tab 04/01/21 04/01/21 Previous Rx's Medication Instructions Recorded albuterol sulfate 90 mcg/actuation 2 inh INHALATION Q6H PRN #1 ea 02/17/21 breath activated powder inhaler prednisone See Rx Instructions .ROUTE 03/28/21 .COMPLEX #18 tab lidocaine [Lidoderm] 1 patch TOPICAL Q24H #4 ea 03/31/21 methocarbamol 750 mg tablet 750 mg PO Q6H PRN #30 tab 04/01/21 Allergies Allergy/AdvReac Type Severity Reaction Status Date / Time Sulfa (Sulfonamide Allergy Mild Rash Verified 04/01/21 09:02 Antibiotics) pollen extracts Allergy Unknown Verified 04/01/21 09:02 General Stated Complaint: Nk/Back Pain JUANITA: 4 Review of Systems All systems reviewed & are unremarkable except as noted in HPI and below Constitutional Constitutional: Reports as per HPI, Denies chills and Denies fever(s) Eyes Eyes: Denies blurry vision ENT Ears, Nose, Mouth, and Throat: Denies dizziness, Denies sore throat and Denies throat swelling Cardiovascular Cardiovascular: Denies chest pain and Denies dyspnea Respiratory Respiratory: Denies cough and Denies dyspnea Gastrointestinal Gastrointestinal: Denies abdominal pain, Denies diarrhea and Denies vomiting Genitourinary Genitourinary: Denies hematuria and Denies dysuria Musculoskeletal Musculoskeletal: Reports back pain and Denies numbness Integumentary/Breasts Skin/Breast: Denies lesions and Denies rash Neurologic Neurologic: Denies dizziness, Denies localized weakness and Denies numbness Allergic/Immunologic Allergic/Immunologic: Denies throat swelling PFSH All Active Problems (Updated 04/01/21 @ 09:27 by Herrera Castillo MD) Lumbar strain (Acute) 03/2021 Inguinal abscess (Acute) left groin- with reactive lymphadenitis Idiopathic thrombocytopenic purpura (ITP) (Acute) 12/2020, required hospitalization, (platelet count -8)tx with steroids, followed by hematology at [facility] [place] 03/2021, Platelet count 174 Anxiety (Chronic) 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 Father Substance use disorder Sister No problems noted. Brother Alcohol use disorder Brother No problems noted. Maternal Grandfather Alcohol use disorder Paternal Grandfather No problems noted. Maternal Grandmother No problems noted. Paternal Grandmother Diabetes Social History Smoking/Tobacco Use Status: Never Second Hand Exposure: Yes Smoking risk assessment performed?: Yes Alcohol Intake: current Alcohol Intake frequency: a few times a month Alcohol type: beer and hard liquor Drug use: Daily Substance use type: marijuana Counseling given: Yes Caregiver/Support person: No Housing: apartment Communication Needs: None Do you need help understanding health information?: Rarely Pets and animals: No Sexually active: No Do you think of yourself as: straight/heterosexual Current gender identity: male What is your relationship status?: never How often do you talk on the phone with friends or family?: three or more times per week How often do you get together with friends or relatives?: once per week How often do you attend muslim or rastafari services?: decline to answer Do you belong to any clubs or organized social groups?: no Panel score (0-1 are the most socially isolated patients): 1 Duration: > 90 minutes/day Frequency: 5-6 times per week Jalyn/Adventism: No preference Special jalyn needs: No Seatbelt use: always Helmet use: Yes Helmet use: always Drive intox or ride w/intox 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: No Do you feel safe at home: Yes Do you feel safe in your relationship?: Yes Exam Const General: cooperative, healthy appearing and no acute distress HENMT Head: normal to inspection Face and sinus: normal facial exam Eyes General: appearance normal, both eyes and all related structures EOM: EOM intact bilaterally Neck Neck: normal visual inspection and No submandibular swelling Lymphatic: no lymphadenopathy noted Chest Chest: normal inspection of the chest and no tenderness Resp Effort & Inspection: normal respiratory effort and able to speak in complete sentences Auscultation: clear to auscultation bilaterally Cardio Rate: regular rate Rhythm: regular rhythm GI Inspection: normal to inspection Palpation: soft, not firm, not rigid and nontender Auscultation: normal bowel sounds Back/Spine/Pelvis Thoracic/Lumbar Spine: thoracic and lumbar spine normal to inspection, paraspinal tenderness (b/l lumbar) and lumbar spinal tenderness Skin General skin exam: no rashes or lesions noted Neuro General: patient alert, patient awake and patient oriented x3 Cognition: normal cognition Speech: speech normal Motor: muscle tone normal throughout Sensory Exam: no sensory deficits noted DTR's: Rt Patellar: 2+, Lt Patellar: 2+, Rt Ankle: 2+ and Lt Ankle: 2+ Plantar Reflexes: Equivocal: bilateral (negative babinski b/l) Extrem General: normal to inspection, full ROM, capillary refill normal, no calf tenderness bilaterally and no edema Other: B/L DP/PT pulses intact. Psych Appearance: grossly normal Mental Status: mental status grossly normal Speech and Movement: speech and movement normal Affect: normal affect Course Vital Signs Vital signs: Vital Signs Temperature 98.2 F 03/28/21 08:29 Pulse 84 03/28/21 08:29 Respiratory Rate 16 03/28/21 08:29 Blood Pressure 109/69 03/28/21 08:29 Pulse Oximetry 98 03/28/21 08:29 Temperature 98.2 F 03/28/21 08:29 Temperature Source Skin 03/28/21 08:29 Pulse 84 03/28/21 08:29 Respiratory Rate 16 03/28/21 08:29 Respiratory Effort 03/28/21 08:29 Blood Pressure 109/69 03/28/21 08:29 Blood Pressure Position Sitting 03/28/21 08:29 Pulse Oximetry 98 03/28/21 08:29 Oxygen Delivery Method Room Air 03/28/21 08:29 Oxygen Flow Rate 0 03/28/21 08:29 Pain Level 4 03/28/21 08:35 PAWSS Have you Been Recently Intoxicated or Drunk Within the Last 30 days?: Yes Have you Ever Experienced Previous Episodes of Alcohol Withdrawal?: No Have you ever Experienced Withdrawal Seizures?: No Have you ever Experienced Delirium Tremens(DT)s?: No Have you ever undergone Alcohol Rehabilitation Treatment (i.e, inpt ot outpatient treatment programs)?: No Have you ever Experienced Blackouts?: Yes Have you ever Combined Alcohol with other Downers within the last 90 days?: No Have you ever Combined Alcohol with any other Substance of Abuse during the last 90 days?: No Positive Blood Alcohol level on Presentation? [PCS.BAL]: No Evidence of Increased Autonomic Activity (i.e. HR>120, tremor, sweating, agitation, nausea)?: No Result: 2
[2021-03-28] MEDS: oxyCODONE 5 MG TAB PO ×2 (09:00→10:27)
[2021-03-28] MEDS: diazePAM 5 MG TAB PO (09:02)
[2021-03-28 09:50] LABS: Abs Immature Grans 0.02 10^3/uL (0.0-0.06); Absolute Basophil Count 0.02 10^3/uL (0.0-0.2); Absolute Eosinophil Count 0.19 10^3/uL (0.0-0.7); Absolute Monocyte Count 0.93 10^3/uL (0.1-0.8); Absolute Neutrophil Count 5.26 10^3/uL (1.2-6.7); Basophils % 0.3; Eosinophils % 2.5; HCT 44.8 % (40.0-50.0); HGB 14.3 g/dL (13.5-17.5); Immature Grans % 0.3; Lymphocytes % 15.7; MCH 27.6 pg (27.0-33.0); MCHC 31.9 % (32.0-36.0); MCV 86.5 fL (80-95); Monocytes % 12.2; Nucleated RBC 0 %; RBC 5.18 10^6/uL (4.36-5.78); RDW 14.5 % (11.8-14.1); RDW-SD 46.5 fL; WBC 7.62 10^3/uL (4.4-10.8)
[2021-03-28 09:58] LABS: Platelet Count 160 10^3/uL (130-400)
[2021-03-28 09:59] LABS: Diff Comment Diff Reviewed; RBC Morphology Normal
[2021-03-28] MEDS: predniSONE 20 MG TAB 60 MG PO (10:27)
[2021-03-28] MEDS: Ketorolac 60 MG/2 ML VIAL IM (10:28)
[2021-03-28 11:30] VITALS: BP 124/82; PULSE 78; RESP 16; TEMP 37.4; O2SAT 98
== END 2021-03-28 11:39 | disposition home or self-care (01) ==
PROVIDERS: Emergency Provider Physician Assistant; PCP Family Medicine
DX: S39.012A Strain of muscle, fascia and tendon of lower back, initial encounter (principal); X50.1XXA Overexertion from prolonged static or awkward postures, initial encounter; D59.10 Autoimmune hemolytic anemia, unspecified
CPT/HCPCS: 36415; 96372; 99284; 85025; 99283; J1885; J7512

== ENCOUNTER 2021-03-31 10:13 | Emergency (ER) | payer MEDICAID, SELFPAY ==
[2021-03-31 10:18] VITALS: BP 135/70; PULSE 82; RESP 16; TEMP 36.5; O2SAT 100
--- NOTE | 2021-03-31 10:23 | ED.GENADUL_ITS ---
Discharge Plan Disposition Patient Disposition: HOME Condition: Good Discharge Details Clinical Impression: Lumbar strain Primary Care Provider: Herrera Castillo ED Provider: Jeremie Andrade Home Meds and New Rx's Prescriptions: New lidocaine [Lidoderm] 1 PATCH patch 1 patch Topical Q24H Qty: 4 RF: 0 Continued ProAir RespiClick 90 mcg/actuation aerosol powdr breath activated 2 inh inhalation Q6H PRN (Reason: shortness of breath or wheezing) Qty: 1 RF: 2 acetaminophen 500 mg tablet 1,000 mg PO Q6H PRNRF: 0 prednisone 20 mg tablet See Rx Instructions .ROUTE .COMPLEX Qty: 18 RF: 0 methocarbamol 500 mg tablet 500 mg PO Q6H PRN (Reason: muscle spasm) Qty: 14 RF: 0 Discharge Instructions Instructions: Diazepam (By mouth), Low Back Strain (ED) Additional Instructions: At this at this time your MRI shows no significant abnormalities. Your pain is secondary to notable muscle spasms in your back. At this time your signs and symptoms are clinically consistent with a back sprain. This can cause significant pain and take a fair bit of time to heal. I expect 1 to 2 months for potential resolution. In the meantime do not lift anything greater than 5 pounds for the next 2 weeks. Avoid any significant vigorous physical activity. Perform easy gentle regular activities at home without any significant bending or lifting. Please take the steroids as directed. You have been given a prescription for Lidoderm patch. If your insurance does not cover this you can get [id number] Lidoderm patches at 4% which are almost just as effective. Please take the Flexeril as directed but do not take it when driving or operating any vehicles or heavy machinery, swimming, taking long baths, or operating firearms. Please use a heating pad as often as possible on your back. Please take the Valium that has been given to you only as needed for breakthrough pain. Do not take it with Flexeril Perform daily gentle stretches on your back. Please continue to take the Tylenol and Motrin. You can take 1000 mg of Tylenol every 6 hours and 600 mg of ibuprofen every 6 hours. If you notice any worsening of your symptoms, or any new symptoms such as vomiting, diarrhea, fever, chills, shortness of breath, chest pain, numbness or tingling in your groin or legs, weakness in your legs, loss of control for your bowels or bladder, or fainting , please return immediately to the emergency department for reevaluation. Please follow up with your primary care provider as soon as possible for reassessment and reevaluation. As always, it was a pleasure participating in your medical care today. Stand Alone Forms: Work Release Referrals: Herrera Castillo MD [Primary Care Provider] - Medical Decision Making This is a 25-year-old male with a past medical history of ITP, who presents today for evaluation of back pain. Patient states he started a new job working at the [employer] and had been spending long hours standing up. Patient was initially here 3 days ago, at that time signs and symptoms are clinically consistent with musculoskeletal back spasm. He was given steroids, NSAIDs muscle relaxers and narcotics for pain control. He was discharged home, unfortunately the pain has continued and worsened. He was 1 to the urgent care today they recommended he come to the ER for further imaging and pain control. Currently states that the pain is in both sides of his lower back, worsened with any movement or palpation. He describes it as a horrible horrendous stabbing pain in his back. He denies any falls or trauma. He admits to tingling and numbness going down his left leg. He denies any focal weakness. Patient denies any saddle anesthesia, numbness or tingling in the groin, change in sensation when wiping. Patient denies any change in sensation during sexual intercourse, difficulty achieving or maintaining an erection or ejaculation, bowel or bladder incontinence, leakage, or retention. Patient denies any recent symptoms similar to his previous ITP episodes. Physical exam demonstrates notable left lower lumbar spasm, no midline tenderness. No evidence of saddle anesthesia. Subjective tingling under the entire left lower extremity. No evidence of significant weakness. Good rectal tone. Symptoms appear to demonstrate a notable component of musculoskeletal spasm however with the patient's history of ITP, and the potential presence of a spinal epidural hematoma I do feel that further imaging is indicated. We will get MRI of the lumbar spine, treat his pain with Valium and morphine, monitor closely and reassess 1:32 PM Repeat assessment demonstrates near complete resolution of the patient's spasms and back pain. He is feeling much better and feels comfortable going home. Repeat neurologic exam shows no focal neurologic deficits or clinical evidence of cauda equina syndrome. MRI demonstrates no acute process, or evidence of spinal epidural abscess or hematoma. Patient stable for discharge. We will give a few Valium for home use to use as needed for spasm. Discussed red flags for which to return. I have extensively reviewed the treatment plan and discharge instructions with the patient. I have addressed all patient concerns at this time. The patient was made aware of what symptoms to monitor for that would warrant a return to the emergency department. Discussed the plan with the patient, they demonstrate verbal understanding and agreement with our assessment and plan at this time. The documentation in this chart was dictated using [employer] dictation software. Please excuse any dictation errors. FINDINGS: Bones: The last intervertebral disc space is designated the L5/S1 level for the numbering purpose of this examination. The vertebral body heights are well maintained. Alignment is satisfactory. The marrow signal is diffusely low signal on T1 weighted images consistent with red marrow reconversion. No focal lesions are seen. Cord: The conus tip ends at the T12 level. It is of normal size and signal intensity. T12-L1: No disc herniations or bulges are present. L1-2: No disc herniations or bulges are present. L2-3: No disc herniations or bulges are present. L3-4: No disc herniations or bulges are present. L4-5: No disc herniations or bulges are present. L5-S1: No disc herniations or bulges are present. Soft tissues: The visualized SI joints and sacrum are well maintained. The paraspinal soft tissues are unremarkable. IMPRESSION: No evidence epidural hematoma or other acute abnormality. Red marrow reconversion is seen. The discs appear intact. Findings called to emergency department provider. HPI General Date/Time Provider Initiated Documentation: 03/31/21 10:14 . HPI Narrative: This is a 25-year-old male with a past medical history of ITP, who presents today for evaluation of back pain. Patient states he started a new job working at the [employer] and had been spending long hours standing up. Patient was initially here 3 days ago, at that time signs and symptoms are clinically consistent with musculoskeletal back spasm. He was given steroids, NSAIDs muscle relaxers and narcotics for pain control. He was discharged home, unfortunately the pain has continued and worsened. He was 1 to the urgent care today they recommended he come to the ER for further imaging and pain control. Currently states that the pain is in both sides of his lower back, worsened with any movement or palpation. He describes it as a horrible horrendous stabbing pain in his back. He denies any falls or trauma. He admits to tingling and numbness going down his left leg. He denies any focal weakness. Patient denies any saddle anesthesia, numbness or tingling in the groin, change in sensation when wiping. Patient denies any change in sensation during sexual intercourse, difficulty achieving or maintaining an erection or ejaculation, bowel or bladder incontinence, leakage, or retention. Patient denies any recent symptoms similar to his previous ITP episodes. Related Data Home Medications Medication Instructions Recorded Confirmed acetaminophen 500 mg tablet 1,000 mg PO Q6H PRN tab 01/13/21 03/31/21 albuterol sulfate 90 mcg/actuation 2 inh INHALATION Q6H PRN #1 ea 02/17/21 03/31/21 breath activated powder inhaler methocarbamol 500 mg PO Q6H PRN #14 tab 03/28/21 03/31/21 prednisone See Rx Instructions .ROUTE 03/28/21 03/31/21 .COMPLEX #18 tab lidocaine [Lidoderm] 1 patch TOPICAL Q24H #4 ea 03/31/21 Previous Rx's Medication Instructions Recorded albuterol sulfate 90 mcg/actuation 2 inh INHALATION Q6H PRN #1 ea 02/17/21 breath activated powder inhaler methocarbamol 500 mg PO Q6H PRN #14 tab 03/28/21 prednisone See Rx Instructions .ROUTE 03/28/21 .COMPLEX #18 tab lidocaine [Lidoderm] 1 patch TOPICAL Q24H #4 ea 03/31/21 Allergies Allergy/AdvReac Type Severity Reaction Status Date / Time Sulfa (Sulfonamide Allergy Mild Rash Verified 03/31/21 10:30 Antibiotics) pollen extracts Allergy Unknown Verified 03/31/21 10:30 General JUANITA: 4 Review of Systems All systems reviewed & are unremarkable except as noted in HPI and below PFSH All Active Problems (Updated 03/31/21 @ 13:23 by Jeremie Andrade DO) Lumbar strain (Acute) Inguinal abscess (Acute) left groin- with reactive lymphadenitis Idiopathic thrombocytopenic purpura (ITP) (Acute) 12/2020, requires hospitalization, tx with steroids, followed by hematology at [facility] – [place] Anxiety (Chronic) 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 Father Substance use disorder Sister No problems noted. Brother Alcohol use disorder Brother No problems noted. Maternal Grandfather Alcohol use disorder Paternal Grandfather No problems noted. Maternal Grandmother No problems noted. Paternal Grandmother Diabetes Social History Smoking/Tobacco Use Status: Never Second Hand Exposure: Yes Smoking risk assessment performed?: Yes Alcohol Intake: current Alcohol Intake frequency: a few times a month Alcohol type: beer and hard liquor Drug use: Daily Substance use type: marijuana Counseling given: Yes Caregiver/Support person: No Housing: apartment Communication Needs: None Do you need help understanding health information?: Rarely Pets and animals: No Sexually active: No Do you think of yourself as: straight/heterosexual Current gender identity: male What is your relationship status?: never How often do you talk on the phone with friends or family?: three or more times per week How often do you get together with friends or relatives?: once per week How often do you attend hoahaoism or cheondoism services?: decline to answer Do you belong to any clubs or organized social groups?: no Panel score (0-1 are the most socially isolated patients): 1 Duration: > 90 minutes/day Frequency: 5-6 times per week Jalyn/Yazidism: No preference Special jalyn needs: No Seatbelt use: always Helmet use: Yes Helmet use: always Drive intox or ride w/intox lumber driver: No Do you feel safe at home: Yes Do you feel safe in your relationship?: Yes Exam Narrative Exam Narrative: 1.Const: Well-nourished, Well-developed, appearing stated age 2.Eyes: PERRL, no conjunctival injection, and symmetrical lids. 3.ENT: Atraumatic external nose and ears. Moist MM. Neck: Symmetric, trachea midline, No thyromegaly. 4.CVS: +S1/S2, No murmurs or gallops. Peripheral pulses 2+ and equal in all extremities. Brisk capillary refill in all extremities. 5.RESP: Unlabored respiratory effort. Clear to auscultation bilaterally. No wheezes rales or rhonchi 6.GI: Soft, Nontender/Nondistended, No hepatosplenomegaly. No guarding or rebound. 7.MSK: Normocephalic/Atraumatic, Extremities w/o deformity or ttp No midline tenderness to palpation over the CTLS spine. Notable palpable spasm in the left lower vertebral area over L2 and L3 and L4. patient has +5 out of 5 strength in the lower extremities in dorsiflexion and plantarflexion, knee flexion and extension, hip flexion and extension. Normal strength for dorsiflexion and plantar flexion of the great toe bilaterally. There is +2 over 2 dorsalis pedis pulses bilaterally. There is normal sensation to the skin with light touch at the foot, knee, and hip. However patient has subjective tin gling over the entire left lower extremity. Normal saddle sensation. Good sensation over the deep sural nerve area bilaterally. Rectal exam demonstrates good rectal tone. Reflexes are +2 over 4 in the patellar reflex bilaterally. 8.Skin: Warm, Dry. No rashes or lesions. 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 Sensation grossly intact, no focal neurologic deficits. 10.Psych: (AAO) x3. Appropriate mood and affect
[2021-03-31 10:40] LABS: Abs Immature Grans 0.02 10^3/uL (0.0-0.06); Absolute Basophil Count 0.03 10^3/uL (0.0-0.2); Absolute Eosinophil Count 0.23 10^3/uL (0.0-0.7); Absolute Lymphocyte Count 1.59 10^3/uL (1.2-3.4); Absolute Monocyte Count 0.77 10^3/uL (0.1-0.8); Absolute Neutrophil Count 4.46 10^3/uL (1.2-6.7); Basophils % 0.4; Eosinophils % 3.2; HCT 42.9 % (40.0-50.0); HGB 13.9 g/dL (13.5-17.5); Immature Grans % 0.3; Lymphocytes % 22.4; MCH 27.7 pg (27.0-33.0); MCHC 32.4 % (32.0-36.0); MCV 85.5 fL (80-95); Monocytes % 10.8; Neutrophils % 62.9; Nucleated RBC 0 %; Platelet Count 174 10^3/uL (130-400); RBC 5.02 10^6/uL (4.36-5.78); RDW 14.2 % (11.8-14.1); RDW-SD 44.1 fL
[2021-03-31] MEDS: diazePAM 10 MG/2 ML SYR 5 MG IVP (10:40)
--- NOTE | 2021-03-31 10:45 | DI.MRI_ITS ---
Exam(s) MR LUMBAR SPINE WO EXAM: MR LUMBAR SPINE WO CLINICAL HISTORY: bilateral lower back pain, worsening, hx of ITP. TECHNIQUE: Multiplanar multisequence MRI of the Lumbar spine was performed. COMPARISON: No exams were available for comparison FINDINGS: Bones: The last intervertebral disc space is designated the L5/S1 level for the numbering purpose of this examination. The vertebral body heights are well maintained. Alignment is satisfactory. The ma rrow signal is diffusely low signal on T1 weighted images consistent with red marrow reconversion. N o focal lesions are seen. Cord: The conus tip ends at the T12 level. It is of normal size and signal intensity. T12-L1: No disc herniations or bulges are present. L1-2: No disc herniations or bulges are present. L2-3: No disc herniations or bulges are present. L3-4: No disc herniations or bulges are present. L4-5: No disc herniations or bulges are present. L5-S1: No disc herniations or bulges are present. Soft tissues: The visualized SI joints and sacrum are well maintained. The paraspinal soft tissues ar e unremarkable. IMPRESSION: No evidence epidural hematoma or other acute abnormality. Red marrow reconversion is seen. The disc s appear intact. Findings called to emergency department provider. DATA REPOSITORY:
[2021-03-31 10:52] LABS: ALT 26 U/L (16-63); AST 9 U/L (15-37); Albumin 4.2 g/dL (3.4-5.0); Alkaline Phosphatase 75 U/L (46-116); Anion Gap 9.2 mmol/L (3-11); BUN 17 mg/dL (7-18); Bilirubin, Total 0.4 mg/dL (0.2-1.0); CO2 26.8 mmol/L (21.0-32.0); CREATININE 0.8 mg/dL (0.70-1.30); Chloride 103 mmol/L (98-107); Glucose 86 mg/dL (74-106); Potassium 3.7 mmol/L (3.5-5.1); Sodium 139 mmol/L (136-145); Total Protein 7.1 g/dL (6.4-8.2)
[2021-03-31] MEDS: Normal Saline 500 ML IV (10:58)
[2021-03-31 11:53] LABS: Bilirubin Negative (Negative); Blood Negative (Negative); Clarity Clear (Clear); Glucose Negative (Negative); Ketones Negative (Negative); Leukocyte Esterase Negative (Negative); Nitrite Negative (Negative); Urobilinogen 0.2 EU/dL (Up TO 0.2); pH 5.5 (5-8)
[2021-03-31 13:31] VITALS: BP 137/72; PULSE 74; RESP 17; TEMP 36.6; O2SAT 98
[2021-03-31] MEDS: Lidocaine 5% Patch 1 PATCH TP (13:34)
[2021-03-31] MEDS: diazePAM 5 MG TAB 20 MG PO (13:34)
== END 2021-03-31 13:37 | disposition home or self-care (01) ==
PROVIDERS: Emergency Provider Student in an Organized Health Care Education/Training Program; PCP Family Medicine
DX: S33.5XXA Sprain of ligaments of lumbar spine, initial encounter (principal); X50.1XXA Overexertion from prolonged static or awkward postures, initial encounter; R20.2 Paresthesia of skin
CPT/HCPCS: 36415; 80053; 96361; 96374; 96375; 99284; 72148; 81003; 85025; J3360

== ENCOUNTER 2021-05-29 17:32 | Emergency (ER) | payer MEDICAID, SELFPAY ==
[2021-05-29 17:43] VITALS: BP 115/58; PULSE 63; RESP 15; TEMP 36.7; O2SAT 97
[2021-05-29 18:42] LABS: Bilirubin Negative (Negative); Blood Negative (Negative); Clarity Clear (Clear); Glucose Negative (Negative); Ketones Negative (Negative); Leukocyte Esterase Negative (Negative); Nitrite Negative (Negative); Urobilinogen 0.2 EU/dL (Up TO 0.2)
--- NOTE | 2021-05-29 19:12 | W.ED.GENAD ---
Discharge Plan Disposition Patient Disposition: HOME Condition: Stable Discharge Details Clinical Impression: Left testicular pain Primary Care Provider: Herrera Castillo ED Provider: Alexandro Luis Home Meds and New Rx's Prescriptions: Continued ProAir RespiClick 90 mcg/actuation aerosol powdr breath activated 2 inh inhalation Q6H PRN (Reason: shortness of breath or wheezing) Qty: 1 2RF Rx Instructions: with spacer methocarbamol 750 mg tablet 750 mg PO Q6H PRN (Reason: muscle spasm) Qty: 30 1RF acetaminophen 500 mg tablet 1,000 mg PO Q6H PRN0RF lidocaine [Lidoderm] 1 PATCH patch 1 patch Topical Q24H Qty: 4 0RF Discharge Instructions Instructions: Testicle Pain (ED) Additional Instructions: Urinalysis is unremarkable. Your GC and chlamydia tests are pending and you have declined any antibiotics at this time for suspected STD. As we discussed, I am unable to obtain ultrasound here and I have reached out to [facility] and they are all unable to provide ultrasound services. You have declined that I reach out to [facility] to initiate transfer for emergent ultrasound. You do understand that if this was testicular torsion and affecting your blood flow that this can be surgical, you may lose a testicle, and could be life-threatening. Instead you prefer to be discharged at this time and I will set you up with an ultrasound at our facility tomorrow morning and after the ultrasound you will return to the ER for results and evaluation. Return sooner as needed. Medical Decision Making This is a 25-year-old male, denies significant past medical history, presents to the ER for evaluation of left testicular discomfort, dull ache, that goes into his left groin that began around 130 this afternoon. He denies recent illness or trauma. Has not taken any [id number] medications for his symptoms. He reports that he was sexually active with 1 female partner approximately 1 month ago and prior to that it would have been nearly 6 months ago. He denies history of STD or known exposure. Denies fever, abdominal pain, nausea, vomiting, dysuria, hematuria, penile lesions or discharge. Patient seen at the urgent care and sent to the ER for further evaluation. Plan is to obtain urinalysis as well as a GC and chlamydia urine sample. Will contact our radiology department to see if we can call an ultrasound for a scrotal and testicle ultrasound. Based upon his presentation low suspicion for acute torsion Urinalysis unremarkable. GC and chlamydia pending. I was contacted by our radiology department, unfortunately we do not have ultrasound capabilities. We then reached out to [facility], [facility], and [facility] who all unfortunately do not have ultrasound capabilities either. I discussed this with the patient. Next step is to contact [facility] to discuss transfer for ultrasound. Patient declines this as an option. He states that his pain is mild and he does not believe that he has a life-threatening process. He states there probably is not even anything wrong. We did discuss treatment for presumptive STD but given his risk factors he declines this as well. He is agreeable to letting me set him up for an ultrasound tomorrow at our facility and he will then return to the ER for reevaluation and ultrasound results. We did discuss the diagnosis of torsion in length and he understands that this could lead to loss of testicle, sexual dysfunction, and/or . Patient tells me that if his symptoms worsen he will personally drive to [facility] for an ultrasound but does not believe that emergent transfer via EMS is necessary. Strict discharge and return precautions were provided This documentation was generated using [email or web address] dictation system, please disregard any oddities of phrase or misspellings. Medical Records Medical records reviewed: Yes I reviewed the patient's medical records. Lab Data Lab results reviewed: Yes I reviewed the patient's lab results. Labs: Laboratory Tests Range/Units 05/29/21 18:24 Urine Color (Yellow) Yellow Urine Clarity (Clear) Clear Urine pH (5-8) 7.0 Ur Specific [place] (1.005-1.025) 1.020 Urine Protein (Negative) mg/dL Negative Urine Ketones (Negative) mg/dL Negative Urine Blood (Negative) Negative Urine Nitrite (Negative) Negative Urine Bilirubin (Negative) Negative Urine Urobilinogen (Up TO 0.2) EU/dL 0.2 Ur Leukocyte Esterase (Negative) Negative Urine Glucose (Negative) mg/dL Negative HPI General Mode of arrival: ambulatory. Date/Time Provider Initiated Documentation: 05/29/21 17:54. Limitations to Documentation: no limitations. Information obtained by: patient. History of Present Illness 25 year old M presents to the emergency department with the chief complaint of Left testicle pain, described as mild, with intensity rated at 2. Quality is described as aching, and is localized to the genitals. Patient reports radiation to (L groin). Patient started experiencing this unknown (1:30 pm today) and it has been constant. improves with No relieving factors improve symptom(s), No exacerbating factors reported . Patient notes no other symptoms.. Patient did receive the following treatments prior to arrival, other (Evaluated at urgent care, sent to the ER) Related Data Home Medications Medication Instructions Recorded Confirmed acetaminophen 500 mg tablet 1,000 mg PO Q6H PRN tab 01/13/21 05/29/21 albuterol sulfate 90 mcg/actuation 2 inh INHALATION Q6H PRN #1 ea 02/17/21 05/29/21 breath activated powder inhaler (ProAir RespiClick) lidocaine 5 % topical patch 1 patch TOPICAL Q24H #4 ea 03/31/21 05/29/21 (Lidoderm) methocarbamol 750 mg tablet 750 mg PO Q6H PRN #30 tab 04/01/21 05/29/21 Previous Rx's Medication Instructions Recorded albuterol sulfate 90 mcg/actuation 2 inh INHALATION Q6H PRN #1 ea 02/17/21 breath activated powder inhaler (ProAir RespiClick) lidocaine 5 % topical patch 1 patch TOPICAL Q24H #4 ea 03/31/21 (Lidoderm) methocarbamol 750 mg tablet 750 mg PO Q6H PRN #30 tab 04/01/21 Allergies Allergy/AdvReac Type Severity Reaction Status Date / Time Sulfa (Sulfonamide Allergy Mild Rash Verified 05/29/21 17:47 Antibiotics) pollen extracts Allergy Unknown Verified 05/29/21 17:47 General Stated Complaint: Male Reproductive Problem JUANITA: 2 Review of Systems Constitutional Constitutional: Denies fever(s) and Denies weakness Gastrointestinal Gastrointestinal: Denies abdominal pain, Denies nausea and Denies vomiting Genitourinary Genitourinary: Denies hematuria, Denies dysuria, Denies penile discharge, Denies testicular mass and Denies urinary frequency Musculoskeletal Musculoskeletal: Denies back pain, Denies numbness and Denies tingling Integumentary/Breasts Skin/Breast: Denies rash Neurologic Neurologic: Denies numbness, Denies tingling and Denies weakness PFSH All Active Problems (Updated 05/29/21 @ 19:15 by CORTES Kuo) Left testicular pain (Acute) Inguinal abscess (Acute) left groin- with reactive lymphadenitis Idiopathic thrombocytopenic purpura (ITP) (Acute) 12/2020, required hospitalization, (platelet count -8)tx with steroids, followed by hematology at [facility] 03/2021, Platelet count 174 Anxiety (Chronic) 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 Father Substance use disorder Sister No problems noted. Brother Alcohol use disorder Brother No problems noted. Maternal Grandfather Alcohol use disorder Paternal Grandfather No problems noted. Maternal Grandmother No problems noted. Paternal Grandmother Diabetes Social History Smoking/Tobacco Use Status: Never Second Hand Exposure: Yes Smoking risk assessment performed?: Yes Alcohol Intake: current Alcohol Intake frequency: a few times a month Alcohol type: beer and hard liquor Drug use: Daily Substance use type: marijuana Counseling given: Yes Caregiver/Support person: No Housing: apartment Communication Needs: None Do you need help understanding health information?: Rarely Pets and animals: No Sexually active: No Do you think of yourself as: straight/heterosexual Current gender identity: male What is your relationship status?: never How often do you talk on the phone with friends or family?: three or more times per week How often do you get together with friends or relatives?: once per week How often do you attend jewish or episcopal services?: decline to answer Do you belong to any clubs or organized social groups?: no Panel score (0-1 are the most socially isolated patients): 1 Duration: > 90 minutes/day Frequency: 5-6 times per week Jalyn/Zoroastrianism: No preference Special jalyn needs: No Seatbelt use: always Helmet use: Yes Helmet use: always Drive intox or ride w/intox driver helper: No Do you feel safe at home: Yes Do you feel safe in your relationship?: Yes Exam Const General: cooperative, healthy appearing, comfortable and no acute distress Orientation: alert and awake HENVA Head: normal to inspection, normocephalic and atraumatic Eyes Conjunctivae: conjunctivae normal Neck Neck: normal visual inspection, trachea midline and supple Resp Effort & Inspection: normal respiratory effort and able to speak in complete sentences Auscultation: clear to auscultation bilaterally Cardio Rate: regular rate Rhythm: regular rhythm GI Inspection: normal to inspection Palpation: soft, not firm, no guarding, no pulsatile masses and nontender Auscultation: normal bowel sounds Male General Exam: Yes normal external exam Penis: normal penis Meatus: meatus normal Scrotum: scrotum normal, cremasteric reflex present and no inguinal hernias Testes: testicular lie normal and other (Mild left testicular discomfort) Other: Examined both standing up and lying down Back/Spine/Pelvis Back: no CVA tenderness and No back tenderness Skin General skin exam: no rashes or lesions noted Neuro General: patient alert, patient awake, moves all extremities and no focal motor deficits Cognition: normal cognition Speech: speech normal Gait: normal gait Sensory Exam: no sensory deficits noted Psych Appearance: grossly normal Mental Status: mental status grossly normal Course Vital Signs Vital signs: Vital Signs Temperature 36.7 C 05/29/21 17:43 Pulse 63 05/29/21 17:43 Respiratory Rate 15 05/29/21 17:43 Blood Pressure 115/58 L 05/29/21 17:43 Pulse Oximetry 97 05/29/21 17:43 Temperature 36.7 C 05/29/21 17:43 Temperature Source Tympanic 05/29/21 17:43 Pulse 63 05/29/21 17:43 Respiratory Rate 15 05/29/21 17:43 Respiratory Effort Non-Labored 05/29/21 17:46 Blood Pressure 115/58 L 05/29/21 17:43 Blood Pressure Position Supine 05/29/21 17:43 Pulse Oximetry 97 05/29/21 17:43 Oxygen Delivery Method Room Air 05/29/21 17:43 Oxygen Flow Rate 0 05/29/21 17:43 Pain Level 5 05/29/21 17:43 Lab/Test Results Lab/Test Results: Laboratory Tests Range/Units 05/29/21 18:24 Urine Color (Yellow) Yellow Urine Clarity (Clear) Clear Urine pH (5-8) 7.0 Ur Specific [place] (1.005-1.025) 1.020 Urine Protein (Negative) mg/dL Negative Urine Ketones (Negative) mg/dL Negative Urine Blood (Negative) Negative Urine Nitrite (Negative) Negative Urine Bilirubin (Negative) Negative Urine Urobilinogen (Up TO 0.2) EU/dL 0.2 Ur Leukocyte Esterase (Negative) Negative Urine Glucose (Negative) mg/dL Negative PAWSS Have you Been Recently Intoxicated or Drunk Within the Last 30 days?: No Have you Ever Experienced Previous Episodes of Alcohol Withdrawal?: No Have you ever Experienced Withdrawal Seizures?: No Have you ever Experienced Delirium Tremens(DT)s?: No Have you ever undergone Alcohol Rehabilitation Treatment (i.e, inpt ot outpatient treatment programs)?: No Have you ever Experienced Blackouts?: No Have you ever Combined Alcohol with other Downers within the last 90 days?: No Have you ever Combined Alcohol with any other Substance of Abuse during the last 90 days?: No Positive Blood Alcohol level on Presentation? [PCS.BAL]: No Evidence of Increased Autonomic Activity (i.e. HR>120, tremor, sweating, agitation, nausea)?: No Result: 0
[2021-06-03 07:21] LABS: Chlamydia Result Negative (Negative); GC Result Negative (Negative)
== END 2021-05-29 19:26 | disposition home or self-care (01) ==
PROVIDERS: Emergency Provider Physician Assistant; PCP Family Medicine
DX: N50.812 Left testicular pain (principal)
CPT/HCPCS: 87491; 87591; 99282; 81003

== ENCOUNTER 2021-05-30 10:02 | Emergency (ER) | payer MEDICAID, SELFPAY ==
[2021-05-30 10:08] VITALS: BP 111/58; PULSE 73; RESP 16; TEMP 36.9; O2SAT 98
[2021-05-30] MEDS: Doxycycline Hyclate 100 MG CAP PO (10:33)
[2021-05-30] MEDS: cefTRIAXone 500 MG VIAL IM (10:43)
--- NOTE | 2021-05-30 10:44 | ED.GENADUL_ITS ---
Discharge Plan Disposition Patient Disposition: HOME Condition: Stable Discharge Details Clinical Impression: Left testicular pain Primary Care Provider: Herrera Castillo ED Provider: Magaly Stone Home Meds and New Rx's Prescriptions: New doxycycline hyclate 100 mg tablet 100 mg PO BID Qty: 20 0RF Continued ProAir RespiClick 90 mcg/actuation aerosol powdr breath activated 2 inh inhalation Q6H PRN (Reason: shortness of breath or wheezing) Qty: 1 2RF Rx Instructions: with spacer methocarbamol 750 mg tablet 750 mg PO Q6H PRN (Reason: muscle spasm) Qty: 30 1RF acetaminophen 500 mg tablet 1,000 mg PO Q6H PRN0RF lidocaine [Lidoderm] 1 PATCH patch 1 patch Topical Q24H Qty: 4 0RF Discharge Instructions Additional Instructions: Wearing briefs may help with the pain Tylenol and ibuprofen as needed for discomfort Take the doxycycline for the next 10 days, twice a day Yogurt daily while on antibiotic You have been treated empirically sexually transmitted disease, you will be notified if your tests are positive Do not engage in any sexual activity until you receive the results of these tests Referrals: Herrera Castillo MD [Primary Care Provider] - Discharge Data Discharge Date/Time-TO BE ENTERED AT DEPARTURE: 05/30/21 11:01 Medical Decision Making Patient appears well, his vitals are stable, he is afebrile and nontoxic His gonorrhea and Chlamydia tests are pending I reviewed the results of ultrasound and will treat patient empirically for epididymitis given his sexual history Safe sexual practices discussed and patient Return precautions discussed and patient understanding He was treated with 500 mg of IM ceftriaxone and doxycycline 100 mg twice daily for the next 10 days He is also given urology follow-up for epididymal lesion Medical Records Medical records reviewed: Yes I reviewed the patient's medical records. Lab Data Lab results reviewed: Yes I reviewed the patient's lab results. HPI General Date/Time Provider Initiated Documentation: 05/30/21 10:07 . HPI Narrative: This 25-year-old male presents post Scrotal ultrasound was prior to assessment today. He was evaluated in the emergency department last night and declined emergent transfer to [facility] for ultrasound at that time. Patient presents today with persistent pain that is not worsening. Denies any fever or chills. She was sexually active a month ago with an unknown partner. He denies using any sort of protection. He denies any rashes or lesions. He denies any purulent drainage. He denies any dysuria or frequency. He denies history of similar symptoms in the past. Related Data Home Medications Medication Instructions Recorded Confirmed acetaminophen 500 mg tablet 1,000 mg PO Q6H PRN tab 01/13/21 05/30/21 albuterol sulfate 90 mcg/actuation 2 inh INHALATION Q6H PRN #1 ea 02/17/21 05/30/21 breath activated powder inhaler (ProAir RespiClick) lidocaine 5 % topical patch 1 patch TOPICAL Q24H #4 ea 03/31/21 05/30/21 (Lidoderm) methocarbamol 750 mg tablet 750 mg PO Q6H PRN #30 tab 04/01/21 05/30/21 doxycycline hyclate 100 mg tablet 100 mg PO BID #20 tab 05/30/21 Previous Rx's Medication Instructions Recorded albuterol sulfate 90 mcg/actuation 2 inh INHALATION Q6H PRN #1 ea 02/17/21 breath activated powder inhaler (ProAir RespiClick) lidocaine 5 % topical patch 1 patch TOPICAL Q24H #4 ea 03/31/21 (Lidoderm) methocarbamol 750 mg tablet 750 mg PO Q6H PRN #30 tab 04/01/21 doxycycline hyclate 100 mg tablet 100 mg PO BID #20 tab 05/30/21 Allergies Allergy/AdvReac Type Severity Reaction Status Date / Time Sulfa (Sulfonamide Allergy Mild Rash Verified 05/30/21 10:11 Antibiotics) pollen extracts Allergy Unknown Verified 05/30/21 10:11 General Stated Complaint: Recheck JUANITA: 4 Review of Systems All systems reviewed & are unremarkable except as noted in HPI and below PFSH All Active Problems (Updated 05/30/21 @ 10:29 by CORTES Ashton) Left testicular pain (Acute) Inguinal abscess (Acute) left groin- with reactive lymphadenitis Idiopathic thrombocytopenic purpura (ITP) (Acute) 12/2020, required hospitalization, (platelet count -8)tx with steroids, followed by hematology at [facility] 03/2021, Platelet count 174 Anxiety (Chronic) 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 Father Substance use disorder Sister No problems noted. Brother Alcohol use disorder Brother No problems noted. Maternal Grandfather Alcohol use disorder Paternal Grandfather No problems noted. Maternal Grandmother No problems noted. Paternal Grandmother Diabetes Social History Smoking/Tobacco Use Status: Never Second Hand Exposure: Yes Smoking risk assessment performed?: Yes Alcohol Intake: current Alcohol Intake frequency: a few times a month Alcohol t ype: beer and hard liquor Drug use: Daily Substance use type: marijuana Counseling given: Yes Caregiver/Support person: No Housing: apartment Communication Needs: None Do you need help understanding health information?: Rarely Pets and animals: No Sexually active: No Do you think of yourself as: straight/heterosexual Current gender identity: male What is your relationship status?: never How often do you talk on the phone with friends or family?: three or more times per week How often do you get together with friends or relatives?: once per week How often do you attend presybeterian or jain services?: decline to answer Do you belong to any clubs or organized social groups?: no Panel score (0-1 are the most socially isolated patients): 1 Duration: > 90 minutes/day Frequency: 5-6 times per week Jalyn/Episcopalian: No preference Special jalyn needs: No Seatbelt use: always Helmet use: Yes Helmet use: always Drive intox or ride w/intox shag truck driver: No Do you feel safe at home: Yes Do you feel safe in your relationship?: Yes Exam Const General: cooperative, comfortable and no acute distress Eyes Pupils: PERRL Resp Effort & Inspection: normal respiratory effort Cardio Rate: regular rate Neuro General: patient alert Course Vital Signs Vital signs: Vital Signs Temperature 36.9 C 05/30/21 10:08 Pulse 73 05/30/21 10:08 Respiratory Rate 16 05/30/21 10:08 Blood Pressure 111/58 L 05/30/21 10:08 Pulse Oximetry 98 05/30/21 10:08 Temperature 36.9 C 05/30/21 10:08 Temperature Source Skin 05/30/21 10:08 Pulse 73 05/30/21 10:08 Respiratory Rate 16 05/30/21 10:08 Respiratory Effort 05/30/21 10:08 Blood Pressure 111/58 L 05/30/21 10:08 Blood Pressure Position Sitting 05/30/21 10:08 Pulse Oximetry 98 05/30/21 10:08 Oxygen Delivery Method Room Air 05/30/21 10:08 Oxygen Flow Rate 0 05/30/21 10:08 Pain Level 5 05/30/21 10:08
== END 2021-05-30 11:01 | disposition home or self-care (01) ==
PROVIDERS: Emergency Provider Physician Assistant; PCP Family Medicine
DX: N50.812 Left testicular pain (principal)
CPT/HCPCS: J0696

== ENCOUNTER 2021-05-30 21:29 | Outpatient (CLI) | payer MEDICAID, SELFPAY ==
--- NOTE | 2021-05-30 | DI.US_ITS ---
Exam(s) US SCROTUM EXAM: US SCROTUM CLINICAL HISTORY: LT TESTICLE PAIN TECHNIQUE: Ultrasound of the testes performed using grayscale, color, and Doppler imaging. COMPARISON: No exams were available for comparison FINDINGS: RIGHT HEMISCROTUM: The right testicle exhibits normal size and echo architecture with no evidence of intratesticular mas s. Vascular flow was demonstrated within the right testicle, including arterial waveforms. There is a 7 x 5 millimeter cyst in the right epididymis. There is no ipsilateral hydrocele nor varicocele. LEFT HEMISCROTUM: The left testicle exhibits normal size and echo architecture with no evidence of intratesticular mass . Vascular flow is demonstrated within the left testicle, including arterial waveforms. The epididymis appears unremarkable. There are no epididymal head cysts. There is no ipsilateral hydrocele or varicocele. IMPRESSION: 1. No evidence of testicular mass nor testicular torsion. 2. No hydroceles evident. 3. No varicoceles evident Incidentally noted is a 7 x 5 millimeter cystic structure in the body of the right epididymis. DATA REPOSITORY:
== END 2021-05-30 21:49 ==
PROVIDERS: PCP Family Medicine; Visit Provider Physician Assistant
DX: N50.812 Left testicular pain (principal); N50.3 Cyst of epididymis
CPT/HCPCS: 76870

== ENCOUNTER 2021-08-04 18:02 | Emergency (ER) | payer MEDICAID, SELFPAY ==
[2021-08-04 18:17] VITALS: BP 123/57; PULSE 74; RESP 14; TEMP 36.7; O2SAT 97
--- NOTE | 2021-08-04 20:59 | W.ED.GENAD ---
Discharge Plan Disposition Patient Disposition: HOME Condition: Improving Discharge Details Chief Complaint: GenMedical Clinical Impression: Bruising, Fatigue Primary Care Provider: Herrera Castillo ED Provider: Thomas Eaton Home Meds and New Rx's Prescriptions: No Action ProAir RespiClick 90 mcg/actuation aerosol powdr breath activated 2 inh inhalation Q6H PRN (Reason: shortness of breath or wheezing) Qty: 1 2RF Rx Instructions: with spacer acetaminophen 500 mg tablet 1,000 mg PO Q6H PRN Discharge Instructions Instructions: Fatigue (ED) Additional Instructions: Please follow-up with your primary care physician. 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 Please return if you have any worsening symptoms specifically worsening fatigue fevers worsening bruising bleeding or any other abnormal symptoms. Medical Decision Making 25-year-old male history of ITP presents with generalized fatigue body aches, atraumatic bruising of lower extremities, nontoxic however appears uncomfortable possible slight pallor, bruising to bilateral lower extremities; afebrile neurologically intact no headache. Consider ITP flare versus viral syndrome such as influenza or COVID-19 versus electrolyte abnormality versus dehydration. Screening labs close reassessment disposition pending lab results. 22: 32 patient resting comfortably no acute distress labs unremarkable. Consider viral syndrome, however instructed patient to return for any worsening symptoms. Patient comfortable going home will follow up with primary care HPI General Date/Time Provider Initiated Documentation: 08/04/21 20:32. HPI Narrative: 25-year-old male history of ITP presents with fatigue joint discomfort and atraumatic bruising of his lower extremities over the past day. Denies fevers chills nausea vomiting or cough. No sick contacts. Has been admitted before for IVIG platelet transfusion and steroids. Denies headache Related Data Home Medications Medication Instructions Recorded Confirmed acetaminophen 500 mg tablet 1,000 mg PO Q6H PRN 01/13/21 08/04/21 albuterol sulfate 90 mcg/actuation 2 inh inhalation Q6H PRN shortness 02/17/21 08/04/21 breath activated powder inhaler of breath or wheezing #1 ea (ProAir RespiClick) Previous Rx's Medication Instructions Recorded albuterol sulfate 90 mcg/actuation 2 inh inhalation Q6H PRN shortness 02/17/21 breath activated powder inhaler of breath or wheezing #1 ea (ProAir RespiClick) Allergies Allergy/AdvReac Type Severity Reaction Status Date / Time Sulfa (Sulfonamide Allergy Mild Rash Verified 08/04/21 18:21 Antibiotics) pollen extracts Allergy Unknown Verified 08/04/21 18:21 General Stated Complaint: GenMedical JUANITA: 4 Review of Systems Narrative: Review of Systems Constitutional: Fatigue Eyes: negative ENT: negative Cardiovascular: negative Respiratory: negative Gastrointestinal: negative : negative Musculoskeletal: Joint discomfort Skin: Bruising Neurologic: negative Psych: negative PFSH All Active Problems (Updated 08/04/21 @ 22:34 by Thomas Eaton MD) Bruising (Acute) Fatigue (Acute) Inguinal abscess (Acute) left groin- with reactive lymphadenitis Idiopathic thrombocytopenic purpura (ITP) (Acute) 12/2020, required hospitalization, (platelet count -8)tx with steroids, [place] [facility] [place] Plate[place] 174 Anxiety (Chronic) 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 Father Substance use disorder Sister No problems noted. Brother Alcohol use disorder Brother No problems noted. Maternal Grandfather Alcohol use disorder Paternal Grandfather No problems noted. Maternal Grandmother No problems noted. Paternal Grandmother Diabetes Social History Smoking/Tobacco Use Status: Never Second Hand Exposure: Yes Smoking risk assessment performed?: Yes Alcohol Intake: current Alcohol Intake frequency: a few times a month Alcohol type: beer and hard liquor Drug use: Daily Substance use type: marijuana Counseling given: Yes Caregiver/Support person: No Housing: apartment Communication Needs: None Do you need help understanding health information?: Rarely Pets and animals: No Sexually active: No Do you think of yourself as: straight/heterosexual Current gender identity: male What is your relationship status?: never How often do you talk on the phone with friends or family?: three or more times per week How often do you get together with friends or relatives?: once per week How often do you attend mandaen or church services?: decline to answer Do you belong to any clubs or organized social groups?: no Panel score (0-1 are the most socially isolated patients): 1 Duration: > 90 minutes/day Frequency: 5-6 times per week Jalyn/Cheondoism: No preference Special jalyn needs: No Seatbelt use: always Helmet use: Yes Helmet use: always 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 Do you feel safe at home: Yes Do you feel safe in your relationship?: Yes Exam Narrative Exam Narrative: Physical Examination General: alert, awake, cooperative, appears mildly uncomfortable HEENT: normocephalic, atraumatic; PERRL, EOM intact, conjunctiva normal; no nasal discharge; moist mucous membranes, oral and pharyngeal mucosa normal, tolerating secretions Neck: supple, trachea midline; full ROM Chest: normal to inspection Respiratory: normal respiratory effort, speaking in full sentences, clear to auscultation, no wheezing, rales or rhonchi Cardiac: regular rate, regular rhythm, S1S2 intact, no murmurs rubs or gallops GI: abdomen soft, non-tender, non-distended; no palpable mass or hepatosplenomegaly Skin: Slight pallor, bruises to bilateral lower extremities Neuro: AAOx3, normal speech, moving all extremities Extremities: Range of motion intact Psych: Appropriate mood and affect Course Vital Signs Vital signs: Vital Signs Temperature 36.7 C 08/04/21 18:17 Pulse 74 08/04/21 18:17 Respiratory Rate 14 08/04/21 18:17 Blood Pressure 123/57 L 08/04/21 18:17 Pulse Oximetry 97 08/04/21 18:17 Temperature 36.7 C 08/04/21 18:17 Temperature Source Oral 08/04/21 18:17 Pulse 74 08/04/21 18:17 Respiratory Rate 14 08/04/21 18:17 Respiratory Effort Short of Breath 08/04/21 20:56 Respiratory Depth Normal 08/04/21 20:56 Respiratory Pattern Normal 08/04/21 20:56 Blood Pressure 123/57 L 08/04/21 18:17 Blood Pressure Position Sitting 08/04/21 18:17 Pulse Oximetry 97 08/04/21 18:17 Oxygen Delivery Method Room Air 08/04/21 18:17 Oxygen Flow Rate 0 08/04/21 18:17 Pain Level 6 08/04/21 18:17 PAWSS Have you Been Recently Intoxicated or Drunk Within the Last 30 days?: Yes Have you Ever Experienced Previous Episodes of Alcohol Withdrawal?: No Have you ever Experienced Withdrawal Seizures?: No Have you ever Experienced Delirium Tremens(DT)s?: No Have you ever undergone Alcohol Rehabilitation Treatment (i.e, inpt ot outpatient treatment programs)?: No Have you ever Experienced Blackouts?: No Have you ever Combined Alcohol with other Downers within the last 90 days?: No Have you ever Combined Alcohol with any other Substance of Abuse during the last 90 days?: No Positive Blood Alcohol level on Presentation? [PCS.BAL]: No Evidence of Increased Autonomic Activity (i.e. HR>120, tremor, sweating, agitation, nausea)?: No Result: 1
[2021-08-04 21:02] LABS: Abs Immature Grans 0.01 10^3/uL (0.0-0.06); Absolute Basophil Count 0.02 10^3/uL (0.0-0.2); Absolute Eosinophil Count 0.18 10^3/uL (0.0-0.7); Absolute Monocyte Count 0.69 10^3/uL (0.1-0.8); Absolute Neutrophil Count 6.26 10^3/uL (1.2-6.7); Basophils % 0.2; Eosinophils % 2.1; HCT 39.7 % (40.0-50.0); HGB 12.9 g/dL (13.5-17.5); Immature Grans % 0.1; Lymphocytes % 18.3; MCH 28.7 pg (27.0-33.0); MCHC 32.5 % (32.0-36.0); MCV 88 fL (80-95); Monocytes % 7.9; Neutrophils % 71.4; Platelet Count 181 10^3/uL (130-400); RBC 4.49 10^6/uL (4.36-5.78); RDW 13.5 % (11.8-14.1); RDW-SD 44.2 fL; WBC 8.76 10^3/uL (4.4-10.8)
[2021-08-04 21:16] LABS: ALT 21 U/L (16-63); AST 10 U/L (15-37); Albumin 3.9 g/dL (3.4-5.0); Alkaline Phosphatase 90 U/L (46-116); Anion Gap 7.4 mmol/L (3-11); BUN 14 mg/dL (7-18); Bilirubin, Total 0.5 mg/dL (0.2-1.0); CO2 28.6 mmol/L (21.0-32.0); CREATININE 0.8 mg/dL (0.70-1.30); Calcium 8.3 mg/dL (8.5-10.1); Chloride 107 mmol/L (98-107); Glucose 93 mg/dL (74-106); Sodium 143 mmol/L (136-145); Total Protein 6.5 g/dL (6.4-8.2)
[2021-08-04 21:18] LABS: INR 1.1 (0.9-1.1); PTT Activated 28.1 sec (21.0-27.5)
[2021-08-04 21:40] LABS: COVID-19 PCR Negative (Negative); Influenza A PCR Negative (Negative); Influenza B PCR Negative (Negative); RSV PCR Negative (Negative)
== END 2021-08-04 22:42 | disposition home or self-care (01) ==
PROVIDERS: Emergency Provider Emergency Medicine; PCP Family Medicine
DX: R53.83 Other fatigue (principal); M79.81 Nontraumatic hematoma of soft tissue
CPT/HCPCS: 80053; 86850; 86900; 86901; 87637; 99282; 85025; 85610; 85730

== ENCOUNTER 2021-09-05 13:41 | Emergency (ER) | payer MEDICAID, SELFPAY ==
[2021-09-05 13:44] VITALS: BP 134/94; PULSE 111; RESP 16; TEMP 36.3; O2SAT 98
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
[2021-09-05] MEDS: Bupivacaine 0.5% Pres-Free 30 ML VIAL (15:11)
== END 2021-09-05 15:45 | disposition home or self-care (01) ==
PROVIDERS: Emergency Provider Physician Assistant; PCP Nurse Practitioner Family
DX: S01.01XA Laceration without foreign body of scalp, initial encounter (principal); S01.112A Laceration without foreign body of left eyelid and periocular area, initial encounter; S01.311A Laceration without foreign body of right ear, initial encounter; W22.8XXA Striking against or struck by other objects, initial encounter; Y04.2XXA Assault by strike against or bumped into by another person, initial encounter
CPT/HCPCS: 12001; 12015; 99284; 70450; 70486; 99283

== ENCOUNTER 2021-09-10 10:13 | Emergency (ER) | payer MEDICAID, SELFPAY ==
[2021-09-10 10:19] VITALS: BP 129/80; PULSE 72; RESP 16; TEMP 36.5; O2SAT 99
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
== END 2021-09-10 10:26 | disposition home or self-care (01) ==
LOC: ER 10:57
PROVIDERS: Emergency Provider Emergency Medicine; PCP Nurse Practitioner Family
DX: S01.81XD Laceration without foreign body of other part of head, subsequent encounter (principal); X58.XXXD Exposure to other specified factors, subsequent encounter; Z48.02 Encounter for removal of sutures

== ENCOUNTER 2021-11-26 04:17 | Outpatient (CLI) | payer MEDICAID, SELFPAY ==
[2021-11-26 15:06] LABS: HCT 45.5 % (40.0-50.0); HGB 14.9 g/dL (13.5-17.5); MCH 28.7 pg (27.0-33.0); MCHC 32.7 % (32.0-36.0); MCV 88 fL (80-95); MPV 12.8 fL (8.0-11.0); Platelet Count 187 10^3/uL (130-400); RDW 13.6 % (11.8-14.1); RDW-SD 43.8 fL; WBC 13.64 10^3/uL (4.4-10.8)
[2021-11-26 16:02] LABS: Calculated LDL 81 mg/dL (<100); Cholesterol 134 mg/dL (<200); HDL Cholesterol 46 mg/dL (40-60); TSH (W/Ref FT4) 0.68 uIU/mL (0.36-3.74); Triglyceride 35 mg/dL (<150)
== END 2021-11-26 04:18 | disposition home or self-care (01) ==
LOC: LBO 04:18
PROVIDERS: Family Medicine; PCP Nurse Practitioner Family; Visit Provider Family Medicine
DX: R53.83 Other fatigue (principal); D69.3 Immune thrombocytopenic purpura; T14.8XXA Other injury of unspecified body region, initial encounter; Z13.6 Encounter for screening for cardiovascular disorders
CPT/HCPCS: 36415; 80061; 85027; 84443